=== PATIENT | female | born 1975 | race Caucasian/White ===

== ENCOUNTER 2016-10-27 01:21 | Emergency (ER) | payer BC ==
--- NOTE | 2016-10-27 01:46 | ED ---
Lower Extremity Injury HPI - General Stated Complaint: Ankle Injury Time Seen by Provider: 10/27/16 01:28 Source: patient, EMS, RN notes reviewed Mode of arrival: EMS Limitations: no limitations - History of Present Illness Initial Comments: This a 41-year-old female presents emergency Department chief complaint right ankle injury. Patient states she just got home in which she was walking her house and states her ankle rolled. She states that her ankle appeared to be deformed. She states that her significant other pulled on it and states that they called him 911 because she cannot walk. She does admit to some alcohol use tonight. Patient denies any head injury no LOC. She states she only has right ankle pain with no prior history of ankle problems. - Related Data Home Medications Medication Instructions Recorded Confirmed Levothyroxine Sodium [Synthroid] 50 mcg PO DAILY 10/27/16 10/27/16 Previous Rx's Medication Instructions Recorded HYDROcodone/APAP 7.5-325MG [Dimock 1 tab PO Q6HR PRN #20 tab 10/27/16 7.5-325] Allergies Allergy/AdvReac Type Severity Reaction Status Date / Time hydroxyzine [From Vistaril] Allergy Unknown Verified 10/27/16 01:49 Review of Systems ROS Statement: Those systems with pertinent positive or pertinent negative responses have been documented in the HPI. ROS Other: All systems not noted in ROS Statement are negative. General Exam General appearance: alert, in no apparent distress Respiratory exam: Present: normal lung sounds bilaterally. Absent: respiratory distress, wheezes, rales, rhonchi, stridor Cardiovascular Exam: Present: regular rate, normal rhythm, normal heart sounds. Absent: systolic murmur, diastolic murmur, rubs, gallop, clicks Extremities exam: Present: other (Right ankle there is moderate swelling with ecchymosis noted moderate to severe tenderness medial malleolus neurovascular intact with cap refill less than 2 seconds no foot tenderness and no tenderness over the proximal tib-fib) Neurological exam: Present: alert, oriented X3, CN II-XII intact Skin exam: Present: warm, dry Course Vital Signs 10/27/16 01:30 Temperature 97.3 F L Pulse Rate 92 Respiratory 18 Rate Blood Pressure 118/73 O2 Sat by Pulse 98 Oximetry Procedures - Orthopedic Splinting/Casting Injury #1 Side: right Lower Extremity Injury Location: ankle Lower Extremity Immobilizer: posterior splint (Short leg neurovascular intact before and after procedure in addition sugar tong splint was added) Other Orthopedic Equipment: crutches Medical Decision Making - Medical Decision Making 41-year-old female presented emergency department for her right ankle injury. Patient has comminuted ankle fracture/bimalleolar fracture. Patient was splinted and we follow-up with orthopedics. Patient was given prescription for crutches and pain medication return parameters were discussed. Foot is neurovascularly intact. Disposition Clinical Impression: Bimalleolar fracture of right ankle Disposition: HOME SELF-CARE Condition: Stable Instructions: Ankle Fracture (ED) Additional Instructions: Please return to the Emergency Department if symptoms worsen or any other concerns. Prescriptions: HYDROcodone/APAP 7.5-325MG [Dimock 7.5-325] 1 tab PO Q6HR PRN #20 tab PRN Reason: Pain Referrals: Annamarie Berg MD [Primary Care Provider] - 1-2 days Miguel Angel Pringle MD [Medical Doctor] - 1-2 days Time of Disposition: 02:06
[2016-10-27 01:50] VITALS: RESP 18
--- NOTE | 2016-10-27 02:08 | XR ---
EXAM: XR Right Ankle Complete, 3 or More Views CLINICAL HISTORY: Reason: Pain TECHNIQUE: Frontal, lateral and oblique views of the right ankle. COMPARISON: No relevant prior studies available. FINDINGS: Bones/joints: Comminuted distal fibular fracture at the distal diaphysis. Distal tibial fracture at the metadiaphysis extending to the medial malleolus. Slight disruption of the ankle mortise with widening of the medial tibiotalar space. Small os trigonum posterior talus. Soft tissues: Unremarkable. IMPRESSION: 1. Comminuted distal fibular fracture. 2. Distal tibial fracture at the metadiaphysis extending to the medial malleolus. 3. Slight disruption of the ankle mortise with widening of the medial tibiotalar space.
[2016-10-27] MEDS ORDERED: HYDROcodone/APAP 7.5-325MG 1 EACH TAB PO ONE (02:13)
[2016-10-27 02:27] VITALS: BP 111/73; PULSE 90; TEMP 97.7
== END 2016-10-27 02:27 | disposition home or self-care (01) ==
LOC: EC 01:21
DX: S82.841A Displaced bimalleolar fracture of right lower leg, initial encounter for closed fracture (principal); Z79.899 Other long term (current) drug therapy; Z88.8 Allergy status to other drugs, medicaments and biological substances; W18.40XA Slipping, tripping and stumbling without falling, unspecified, initial encounter; Y92.009 Unspecified place in unspecified non-institutional (private) residence as the place of occurrence of the external cause
CPT/HCPCS: 29515; 99284

== ENCOUNTER → 2016-10-29 | Outpatient (CLI) | payer BC ==
--- NOTE | 2016-10-29 14:56 | CT ---
EXAMINATION TYPE: CT ankle RT wo con DATE OF EXAM: 10/29/2016 COMPARISON: Right ankle x-ray 2 days ago. HISTORY: Persistent pain post trauma on 10/26/16, known fractures CT DLP: 286 mGycm Automated exposure control for dose reduction was used. FINDINGS: Overlying cast material is present. There is redemonstration of comminuted displaced fracture through distal fibular diaphysis. There is distraction of distal fracture fragment. There is additional rhomboid fracture fragment that is later ally displaced and laterally angulated inferiorly redemonstrated. There is comminuted transverse fracture through the medial malleolus with largest 1.7 cm displaced fr acture fragment. There are additional smaller punctate fracture fragments. There is comminuted acute intra-articular fracture of the posterior malleolus redemonstrated. There is ankle mortise disruption with talus laterally displaced relative to the distal tibia and has abnormal medial tilting. There is mild to moderate diffuse subcutaneous edema. Visualized distal Achilles tendon is intact. Normal sinus tarsi fat is seen. The talus and calcaneus are intact. Hindfoot structures and visualized midfoot structures are intact. Lisfranc joints are andrea ntained. IMPRESSION: ACUTE TRIMALLEOLAR COMMINUTED FRACTURE WITH MORTISE DISRUPTION REDEMONSTRATED DETAILED ABOVE.
== END | disposition home or self-care (01) ==
LOC: RADCTMAIN 14:21
PROVIDERS: ATTEND Orthopaedic Surgery
DX: S82.851A Displaced trimalleolar fracture of right lower leg, initial encounter for closed fracture (principal)

== ENCOUNTER 2016-11-06 08:47 | Day surgery (SDC) | payer BC ==
[2016-11-04 15:41] VITALS: BMI 31.6
[~2016-11-06 08:47] MED LIST: FAMOTIDINE 20 MG/2 ML VIAL IV PRN; LACTATED RINGERS 1,000 ML IV SCH; LIDOCAINE 1% 20 ML VIAL (10MG/ML) FOR IV START INTRADERMA PRN; ONDANSETRON 4 MG/2 ML VIAL IVP PRN; ceFAZolin 2 GM in SODIUM CHLORIDE 0.9% 100 ML IVPB ONE
[2016-11-06] MEDS ORDERED: SCOPOLAMINE 1.5MG/72HR PATCH TRANSDERM ONE (09:25)
[2016-11-06] MEDS ORDERED: PROPOFOL 10 MG/ML 20 ML VIAL IV ONE (11:12)
[2016-11-06] MEDS ORDERED: HYDROmorphone (PF) 1 MG/ML ONE (11:12)
[2016-11-06] MEDS ORDERED: MIDAZOLAM 2 MG/2 ML VIAL ONE (11:12)
[2016-11-06] MEDS ORDERED: ePHEDrine 50 MG/ML 1 ML AMP ONE (11:12)
[2016-11-06] MEDS ORDERED: fentaNYL (PF) 50 MCG/ML 2 ML AMP ONE (11:12)
[2016-11-06] MEDS ORDERED: LIDOCAINE 1% INJ 10MG/ML (20 ML MDV) ONE (11:12)
[2016-11-06] MEDS ORDERED: ceFAZolin 1,000 MG in SODIUM CHLORIDE 0.9% 1,000 ML IRRIGATION ONE ×4 (11:45)
[2016-11-06] MEDS ORDERED: LACTATED RINGERS 1,000 ML IV ONE ×2 (12:00→13:49)
--- NOTE | 2016-11-06 13:11 | XR ---
Fluoroscopy History: ORIF ANKLE 59 SEC FL TIME, 3 IMAGS. ORIF ANKLE . Paper images demonstrate fixation plate and screws in place wit h much improved alignment.
[2016-11-06] MEDS: HYDROmorphone 1 MG/ML 1 ML SYRINGE IVP PRN ×2 (13:35→13:42)
[2016-11-06 13:36] VITALS: TEMP 97.4
[2016-11-06 13:43] VITALS: RESP 16
--- NOTE | 2016-11-06 13:43 | P.OP ---
Date of Procedure: 11/06/16 Preoperative Diagnosis: 1. Closed right trimalleolar ankle fracture Postoperative Diagnosis: Same Procedure(s) Performed: 1. Open reduction and internal fixation right trimalleolar ankle fracture ( open reduction and internal fixation of medial and lateral malleolus, nonoperative management of posterior malleolus fracture) 2. Manual application of joint stress by physician for radiography, right ankle Implants: Anesthesia: GETA Surgeon: Miguel Angel Pringle Lunchroom Food Service Supervisor #1: Rosemarie Garcia Estimated Blood Loss (ml): 20 IV fluids (ml): 1,600 Pathology: none sent Condition: stable Disposition: PACU Indications for Procedure: The patient is a 41-year-old female who sustained a fall over a week ago resulting in a closed right ankle fracture. She was seen in the emergency department where a closed reduction and splint application was performed. She was transferred to our office for further management. X-rays showed a comminuted fibula fracture with a displaced medial and posterior malleolus fracture. She was sent for a computed tomography scan which showed a highly comminuted fibula fracture, large medial malleolus fracture and small posterior malleolus fracture. I recommended open reduction internal fixation of her fracture. We discussed potential risks and complication of surgery including but not limited to risk of anesthesia, risk of delayed infection, risk of superficial infection, risk of delayed wound healing, risk of wound necrosis, risk of damage to local sensory nerves resulting attempt or permanent numbness, risk of damage to blood vessels, risk of fracture malunion, risk of fracture nonunion, risk of delayed union, risk of symptomatically hardware, risk of intraoperative fracture, risk of postoperative fracture, risk of postoperative displacement requiring further surgery, risk of chronic pain, risk of chronic swelling, risk of difficulty regaining preinjury level of function, risk of the faculty with ambulation phone surgery, risk of dissatisfaction with surgery, and possibly loss of life or limb. The patient voices her understanding of these risks and provided her verbal and written consent to go forward with surgery. Operative Findings: Description of Procedure: The patient was identified in preoperative holding and the correct right lower extremity was marked with my initials. All the patient's questions were answered. She was then brought back to the operating room after anesthesia had placed a popliteal and saphenous nerve block in preoperative holding. The patient was then positioned on the operating room table and a general anesthetic and preoperative antibiotics were administered. A tourniquet was applied to the proximal aspect of the right thigh. Prior to securing the patient to the table and a mortise and chew lateral of the unaffected left ankle were used for intraoperative templates due to the comminuted nature of her fibula fracture. Once these x-rays had been obtained the left leg was secured to the operating room table with egg foam and tape. A bone foam bump was placed under her right buttock internally rotating the leg. A ramp was placed under the right leg. The patient's right leg was then prepped and draped in the standard sterile fashion. Prior to starting surgery timeout was performed identifying the correct patient, operative extremity, and procedure. The patient's leg was then elevated, exsanguinated with an Esmarch bandage, and the tourniquet was inflated to 250 mmHg. Due to the comminuted fibula fracture I elected to perform open reduction internal fixation of the medial malleolus first to help assess reduction of the fibula. A longitudinal incision was made centered over the tip of the medial malleolus. Dissection was carried down carefully through the subcutaneous tissue with tenotomy scissors. The saphenous nerve and vein were identified and carefully retracted anteriorly. The fracture site was identified and the periosteum was incised longitudinally in line with the skin incision. Consolidating hematoma and early callus was cleaned out from the fracture site. Using a dental put I booked open the medial malleolus fracture and evaluated the joint. There were several loose osteochondral fragments which were removed. The joint was then copiously irrigated. There did not appear to be any osteochondral defects within the visible portion of the talar dome. A 2.0 mm drill bit was then used to create a unicortical poke hole just proximal to the fracture. 1 neno of a vwfmx-nn-yxbxz reduction clamp was placed in this drilled hole and the other neno was placed on the tip of the medial malleolus. I then gently keyed the medial malleolus fragment in place and tightened the reduction clamp holding the reduction. I verified reduction using fluoroscopy. I also dissected anteriorly to the shoulder of the ankle joint which appeared to be anatomically reduced. I then placed K wires anteriorly and posteriorly to the neno of the pointed reduction clamp and the tip of the medial malleolus. A cannulated drill bit was used to overdrill and then two partially threaded 4.5 mm cannulated screws were placed. The reduction clamp was removed and the reduction held. I verified reduction and placement of hardware with C-arm. Attention was then turned to the fibula. A longitudinal incision was marked out distal to the fracture directly over the distal aspect of the lateral malleolus. A second incision was marked out proximal to the fracture over the lateral aspect of the fibula. The skin directly over the comminuted fracture was not approached to prevent violation of the fracture zone due to the high level of comminution. Skin incisions were made over both marked incision with a 15 blade scalpel and dissection was carried down carefully to the fibula proximal and distal to the area of comminution. A mfzsv-ao-[id number] reduction clamp was placed on the distal aspect of the fibula. I then pulled longitudinal traction. Using the contralateral mortise view obtained before surgery to guide the length and rotation I used a 0.0625 K wire anterior and posterior to the plate would sit to hold the reduction. I then came in for a lateral C-arm shot. Using the preoperative lateral x-ray of the contralateral limb I assessed the anterior to posterior position of the fibula. Once the right side appeared symmetric to the left a second K wire was placed. Both K wires were then driven into the tibia holding the reduction. C-arm fluoroscopy was then used to assess reduction and the both the mortise and lateral view. The right x-ray appeared to be symmetric to the left. I then placed a precontoured distal fibula plate through the distal incision and slid it proximally. The plate was secured to bone with 3.5 mm nonlocking screws both proximal and distal to the area of comminution bringing the plate nicely down to bone. I then proceeded to place 4 locking screws distally through the plate and an additional 3 nonlocking screws proximal to the plate. A manual external rotation stress test was then performed. Under live C-arm when an external rotation stress was performed there was opening of the medial clear space and incisura. I interpreted this as an unstable syndesmosis requiring a syndesmotic screw. I then placed a large pelvic reduction clamp with 1 neno in a screw hole over the lateral malleolus and the other neno over the medial malleolus. Gentle compression was applied and a fully threaded 35 screw was placed across all 4 cortices of the fibula and tibia, respectively. Final fluoroscopy shots were then taken including a mortise, AP, and true lateral. The talus appeared to be anatomically reduced within the ankle mortise on all views. The hardware appeared to be in acceptable position. All wounds were then copiously irrigated with sterile saline. The deep fascia was closed with running 0 Vicryl in all incisions. The deep subcu was reapproximated using interrupted 2-0 Vicryl. The skin was closed using 3-0 nylon horizontal mattress stitches. After all incisions were closer verified that all instrument, sponge, and sharp counts were correct. A sterile dressing consisting of quarter inch Brown stretchy Steri-Strips, Betadine soaked Adaptic , 4 x 4, and web roll was applied. The drapes were then taken down and a very well-padded bulky Norris type splint was applied. The patient was then awoken from her anesthetic, transferred from the operating table to the [facility] and brought to PACU in stable condition. Rosemarie Garcia PA-C was required as a skilled clinical project assistant for patient positioning, prepping, surgical exposure, fracture reduction, skin retraction, application of hardware, posterior of surgical wounds, and placement of splint. Plan: The patient is to remain strictly nonweightbearing on her right leg. If her pain is controlled she can discharge home as an outpatient. If she has issues with pain she can be admitted to the hospital. If she is admitted to the hospital she will need 2 doses of postoperative antibiotics and DVT prophylaxis with Lovenox.
[2016-11-06] MEDS ORDERED: KETOROLAC 30 MG/ML 1 ML VIAL IVP ONE (13:51)
[2016-11-06] MEDS: MIDAZOLAM 2 MG/2 ML VIAL IV PRN ×2 (14:03→14:20)
[2016-11-06] MEDS ORDERED: HYDROcodone/APAP 10-325MG 1 EACH TAB PO ONE (14:58)
[2016-11-06 16:05] VITALS: BP 126/70; PULSE 100
--- NOTE | 2016-11-07 09:49 | P.ONQ ---
Anesthesiology Proc Note - PNB - Peripheral Nerve Block Performed Right Popliteal Single Time Out Performed: Yes Procedure Start Time: 11:05 Procedure Stop Time: 11:10 Indication: Acute Post-Operative Pain, Requested by physician Sedation Type: Sedate with meaningful contact maintained Preparation: Sterile Prep Catheter: None Needle Size: 50mm (2") Needle Gauge: 21 Technique: Ultrasound Injectate: 0.5% Ropivacaine (see comment for volume) (ropi .5% 20cc given) Blood Aspirated: No Pain Paresthesia on Injection Noted: No Resistance on Injection: Normal Events: Uneventful and Well Tolerated
== END 2016-11-06 16:10 | disposition home or self-care (01) ==
LOC: OR 08:47
PROVIDERS: ATTEND Orthopaedic Surgery
DX: S82.851A Displaced trimalleolar fracture of right lower leg, initial encounter for closed fracture (principal); W19.XXXA Unspecified fall, initial encounter; E03.9 Hypothyroidism, unspecified; Z79.891 Long term (current) use of opiate analgesic; Z79.899 Other long term (current) drug therapy; Z79.1 Long term (current) use of non-steroidal anti-inflammatories (NSAID); Z91.09 Other allergy status, other than to drugs and biological substances
CPT/HCPCS: 73610; 27822; 77071; C1713; J2250; J0690 ×2; J2405; J1885; J1170

== ENCOUNTER → 2016-11-22 | Outpatient (CLI) | payer BC | END | disposition home or self-care (01) | LOC: LABWHC1 08:53 | PROVIDERS: ATTEND Orthopaedic Surgery | DX: E55.9 Vitamin D deficiency, unspecified (principal) | CPT/HCPCS: 36415; 82306 ==

== ENCOUNTER → 2016-12-19 | Outpatient (CLI) | payer BC | END | disposition home or self-care (01) | LOC: LABWHC1 14:41 | PROVIDERS: ATTEND Orthopaedic Surgery | DX: E55.9 Vitamin D deficiency, unspecified (principal) | CPT/HCPCS: 36415; 82306 ==

== ENCOUNTER → 2017-07-30 | Outpatient (CLI) | payer BC ==
--- NOTE | 2017-07-30 10:57 | WWHP ---
[facility] - HISTORY AND PHYSICAL DATE OF DICTATION: 07/30/2017 CHIEF COMPLAINT: The patient is here for her routine gynecologic exam and mammogram. HPI: This is a 42-year-old G0 with an LMP of 07/11/2017. She states it has been about 2 years since her last pelvic exam. She states she has had a slight vaginal odor on and off during the past 1 year. She denies discharge or pruritus. She has had also occasional pelvic tenderness which can be on and off. She states her periods are regular every month, typically lasting about 3 to 4 days with 1 day of heavier flow and clots. In the past, they have been fairly heavy on the day with clots and the clots can be fairly large. She states over the past 6 months, things have been better and have not been much of a problem more recently. PAST MEDICAL HISTORY: Hypothyroidism. MEDICATIONS: 1. Vitamin D3 four thousand units daily and she decreases this to 2000 units daily during the summer. 2. Thyrotrophin flaj-gjj-zyddrcf supplement taken t.i.d. 3. Cataplex-F t.i.d. 4. She states she previously used levothyroxine 50 mcg daily, but discontinued this in place of the two jyoc-kmm-obvqkvu supplements, which she takes for her thyroid condition. She states her primary care physician is aware of this change. ALLERGIES: To VISTARIL, which cause nausea and vomiting. PAST SURGICAL HISTORY: Breast reduction surgery in 1988, ankle surgery in 2017. PAST SYSTEMS SPECIALIST HISTORY: She has no history of STDs. SOCIAL HISTORY: She denies tobacco and drug use and has 1 to 2 alcohol-containing drinks per week. She has been with her boyfriend for 16 years and lives with him. She states he has been her only sexual partner during these 16 years, but she believes that her partner did have other partners during this 16 years but they have been monogamous for the last several years. 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 FAMILY HISTORY: Aunt had non-Hodgkin's lymphoma. Maternal aunt had breast cancer. Maternal grandfather had lung cancer. Father had an PR and CHF. REVIEW OF SYSTEMS: She believes she has gained approximately 20 pounds over the last year. She denies respiratory, cardiac or GI problems. PHYSICAL EXAM: Blood pressure 123/83, height 5 feet 5 inches, weight 221 pounds. BMI 37, temperature 96.9, pulse 107. This is a well-developed, heavyset white female, who is alert and oriented x3, in no acute distress. HEENT is within normal limits. NECK: Supple without mass or thyromegaly. CHEST AND LUNGS: Clear to auscultation. HEART: Regular rate and rhythm. Breasts are consistent with a previous breast reduction surgery and are without mass or tenderness. Axillary exam is negative for adenopathy. Back negative for CVA tenderness. ABDOMEN: Soft, nontender, without palpable masses. PELVIC EXAM: Normal external genitalia. Cervix and vagina reveal a small amount of thick whitish discharge without odor. Cervix appears normal and is noninflamed. There is no cervical motion tenderness. The uterus is mid position, nongravid size and nontender. There are no palpable adnexal masses or tenderness. Rectal exam is negative for mass or tenderness and is negative for occult blood. EXTREMITIES: Nontender. ADDITIONAL STUDIES: Saline wet mount and YASMIN wet mount is negative for Trichomonas, hyphae and clue cells. IMPRESSION: 1. A 42-year-old female with small vaginal discharge and otherwise unremarkable gynecologic exam. 2. A one-year history of intermittent vaginal odor which is currently asymptomatic and there is no evidence of vaginitis by wet hossein. 3. Mild hypermenorrhea in the past, which has seemed to improved over the last 6 months. 4. Occasional pelvic tenderness without any significant physical findings at this time. PLAN: 1. Pap smear was performed. 2. Self breast examination was discussed. 3. Screening mammogram will be done today. 4. GC and chlamydia testing from the cervix was obtained. 5. The patient will keep a menstrual calendar and call if she has heavier bleeding or increasing clots. At that time, we can consider a medication such as meclofenamate sodium. 6. At this time, I am not treating her for her history of vaginal odor, but she was instructed to return if she is having a return of these symptoms. 7. She will also call if she is having worsening pelvic tenderness or pain at which time we will consider further studies such as pelvic ultrasound. 8. She will return in 1 year and p.r.n. MMODL / IJN: [id number] /
--- NOTE | 2017-07-31 09:10 | MM ---
Reason for exam: screening (asymptomatic). Last mammogram was performed 1 year and 3 months ago. History: Patient is nulliparous. Family history of breast cancer in maternal aunt at age 55. Reductions of both breasts, 1985. Physical Findings: A clinical breast exam by your physician is recommended on an annual basis and results should be correlated with mammographic findings. MG 3D Screening Mammo W/Cad Bilateral CC and MLO view(s) were taken. Prior study comparison: April 17, 2016, bilateral MG 3d diag mammo w/cad KAREN. August 26, 2014, bilateral MG screening mammo w CAD. There are scattered fibroglandular densities. There is no discrete abnormality. No significant changes when compared with prior studies. ASSESSMENT: Negative, BI-RAD 1 RECOMMENDATION: Routine screening mammogram of both breasts in 1 year.
[2017-07-31 16:19] LABS: C. trachomatis,PCR Negative (Neg,Equiv); Chlamydia trachomatis Source Cervix; N. gonorrhoeae,PCR Negative (Neg,Equiv); Neisseria Source Cervix
== END | disposition home or self-care (01) ==
LOC: WWCWWP 08:36
PROVIDERS: ATTEND Obstetrics & Gynecology
DX: Z12.31 Encounter for screening mammogram for malignant neoplasm of breast (principal); Z11.3 Encounter for screening for infections with a predominantly sexual mode of transmission; N89.8 Other specified noninflammatory disorders of vagina
CPT/HCPCS: 77063; 77067; 87491; 87591

== ENCOUNTER → 2018-07-31 | Outpatient (CLI) | payer BC ==
--- NOTE | 2018-07-31 08:43 | MM ---
Reason for exam: additional evaluation requested from prior study. Last mammogram was performed 1 year ago. History: Patient is nulliparous. Family history of breast cancer in maternal aunt at age 55. Reductions of both breasts, 1985. Physical Findings: Nurse did not find any significant physical abnormalities on exam. MG Diagnostic Mammo w CAD KAREN Bilateral CC and MLO view(s) were taken. Prior study comparison: July 30, 2017, bilateral MG 3d screening mammo w/cad. April 17, 2016, bilateral MG 3d diag mammo w/cad KAREN. The breast tissue is heterogeneously dense. This may lower the sensitivity of mammography. No significant new findings when compared with previous films. These results were verbally communicated with the patient and result sheet given to the patient on 07/31/18. ASSESSMENT: Benign, BI-RAD 2 RECOMMENDATION: Routine screening mammogram of both breasts in 1 year.
== END ==
LOC: RADMAMWWP 07:29
PROVIDERS: ATTEND Internal Medicine
DX: N63.10 Unspecified lump in the right breast, unspecified quadrant (principal)
CPT/HCPCS: 77066

== ENCOUNTER → 2018-09-08 | Outpatient (CLI) | payer BC ==
[2018-09-08 09:22] VITALS: BP 122/69; PULSE 79; RESP 18; TEMP 97.9; BMI 36.6
--- NOTE | 2018-09-08 10:15 | P.HPOB ---
History of Present Illness H&P Date: 09/08/18 Chief Complaint: The patient is here for her routine gynecologic exam. This is a 43-year-old G0 with an LMP of 09/02/2018. The patient states she has had occasional pelvic tenderness. She states it is not on one particular side. She denies any urinary symptoms. Menstrual periods are regular every month. She states they can be variable and occasionally are heavy during the 2nd or 3rd day. She states she has gotten sweaty at times. She has been under more stress at work. Review of Systems Her weight has been stable. She denies respiratory or cardiac problems. G.I.: she has been feeling somewhat bloated at times. She has been under more stress at work. She has noticed occasions when she feels sweaty or her pulse is fast. 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 History of Any Multi-Drug Resistant Organisms: None Reported Past Surgical History: Breast Surgery, Orthopedic Surgery Additional Past Surgical History / Comment(s): Breast reduction surgery. Ankle surgery. Additional Past Anesthesia/Blood Transfusion Reaction / Comment(s): over medicated during her breast reduction, pt was 13 yrs old Past Psychological History: No Psychological Hx Reported Smoking Status: Never smoker Past Alcohol Use History: Occasional (0-1 per week) Past Drug Use History: None Reported Additional History: She is been with her boyfriend since 2001 and lives with him. 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 - Past Family History Father Family Medical History: Congestive Heart Failure (CHF), Myocardial Infarction ([place]) Mother Family Medical History: No Reported History Additional Family Medical History / Comment(s): Maternal aunt had breast cancer. Maternal grandfather had lung cancer. Another and had non-Hodgkin's lymphoma. Medications and Allergies Home Medications Medication Instructions Recorded Confirmed Type Levothyroxine Sodium [Synthroid] 50 mcg PO DAILY 10/27/16 09/08/18 History Cholecalciferol [Vitamin D3] 1,000 unit PO DAILY 09/08/18 09/08/18 History Allergies Allergy/AdvReac Type Severity Reaction Status Date / Time hydroxyzine [From Vistaril] Allergy Vomiting Verified 09/08/18 09:12 Exam Vital Signs Temp Pulse Resp BP Pulse Ox 09/08/18 09:15 97.9 F 79 18 122/69 99 Intake and Output 09/07/18 09/08/18 09/08/18 22:59 06:59 14:59 Other: Weight 99.79 kg Height 5'5", weight 220 pounds, BMI 36.6. This is a well-developed well-nourished heavyset white female who is alert and oriented times 3 in no acute distress. HEENT: Within normal limits. NECK: Supple without mass or thyromegaly. CHEST AND LUNGS: Clear to auscultation. HEART: Regular rate and rhythm. BREASTS: Are without mass or discharge. AXILLARY EXAM: Negative for adenopathy. BACK: Negative for CVA tenderness. ABDOMEN: Soft, nontender, without palpable masses. PELVIC EXAM: Normal external genitalia. Cervix and vagina appear normal. There is no unusual discharge. There is no cervical motion tenderness. There is no evidence of prolapse. The uterus is midposition, nongravid size and is minimally tender which is generalized. There are no palpable adnexal masses. RECTAL EXAM: rectovaginal exam is negative for mass or tenderness and is negative for occult blood. EXTREMITIES: Nontender. IMPRESSION: 1. 43 year old female with minimal generalized pelvic tenderness on exam without palpable mass. 2. Greater than 1 year history of intermittent pelvic tenderness. 3. Complainant of abdominal bloating. 4. Intermittent sweating and increased heart rate. Differential diagnosis will include unregulated thyroid, dehydration, hypoglycemia, stress, and possible perimenopausal symptoms. 5. History of mild hypermenorrhea which is intermittent. PLAN: 1. Pap smear was deferred since she had a normal one on 07/30/2017. 2. Self breast awareness was discussed with the patient. 3. Bilateral diagnostic mammogram was done on 07/31/2018 and was benign. Screening mammogram in one year was recommended. 4. Pelvic ultrasound will be scheduled. The order slip was given to the patient for this. 5. The patient will keep a menstrual calendar and call if she is having menstrual problems. 6. She will follow-up with her primary care physician to confirm that her thyroid medication is regulated. 7. GC and chlamydia testing was performed on 07/30/2017 and were both negative. 8. She will return in one year and PRN.
== END | disposition home or self-care (01) ==
LOC: WWCWWP 08:50
PROVIDERS: ATTEND Obstetrics & Gynecology
DX: Z53.9 Procedure and treatment not carried out, unspecified reason (principal)

== ENCOUNTER → 2018-09-17 | Outpatient (CLI) | payer BC ==
--- NOTE | 2018-09-17 16:38 | US ---
EXAMINATION TYPE: US pelvic complete DATE OF EXAM: 09/17/2018 COMPARISON: NONE CLINICAL HISTORY: R10.2 PELVIS PAIN, R68.89 ABN PEL.EXAM. Intermittent pelvic tenderness x couple guadalupe tse, 1, miscarriage 1 TECHNIQUE: Transabdominal sonographic images of the pelvis were acquired. Date of LMP: 09/03/2018 EXAM MEASUREMENTS: Uterus: 13.2 x 6.0 x 6.1 cm Endometrial Stripe: 1.5 cm Right Ovary: 3.1 x 2.1 x 1.7 cm Left Ovary: 2.3 x 1.5 x 1.9 cm 1. Uterus: anteverted, enlarged, heterogeneous with 2.8 x 3.1 x 3.0cm hypoechoic fundal lesion, like ly a leiomyoma 2. Endometrium: appears slightly thickened 3. Right Ovary: wnl 4. Left Ovary: wnl 5. Bilateral Adnexa: wnl 6. Posterior cul-de-sac: wnl IMPRESSION: 1. Slightly thickened endometrium measuring 1.5 cm. Sonohysterogram could be performed to evaluate fo r endometrial polyp, endometrial mass or endometrial hyperplasia. 2. There is a 3.0 cm intramural uterine fundal lesion, likely a leiomyoma.
== END | disposition home or self-care (01) ==
LOC: RADUSWWP 16:03
PROVIDERS: ATTEND Obstetrics & Gynecology
DX: N85.9 Noninflammatory disorder of uterus, unspecified (principal); R93.89 Abnormal findings on diagnostic imaging of other specified body structures
CPT/HCPCS: 76856

== ENCOUNTER → 2018-12-17 | Outpatient (CLI) | payer BC ==
--- NOTE | 2018-12-17 08:34 | US ---
EXAMINATION TYPE: US abdomen complete DATE OF EXAM: 12/17/2018 COMPARISON: NONE CLINICAL HISTORY: R10.10 Upper abd pain. EXAM MEASUREMENTS: Liver Length: 14.4 cm Gallbladder Wall: 0.2 cm CBD: 0.5 cm Spleen: 12.4 cm Right Kidney: 11.7 x 4.3 x 5.4 cm Left Kidney: 10.5 x 4.4 x 5.7 cm Pancreas: visualized portions wnl Liver: wnl Gallbladder: No stones seen Evidence for sonographic Mead's sign: No CBD: wnl Spleen: wnl Right Kidney: No hydronephrosis or masses seen Left Kidney: No hydronephrosis or masses seen Upper IVC: wnl Abd Aorta: wnl The visualized liver is slightly heterogeneously hyperechoic. Evaluation for focal masses is slightly suboptimal due to the heterogeneity. Findings presumed basis of mild diffuse fatty infiltration. Th e intrahepatic portion of the IVC and visualized abdominal aorta are within normal limits. There is no evidence of cholelithiasis. Common bile duct is unremarkable. The visualized portions of the winter creas are homogenous. The spleen is unremarkable. Kidneys are symmetric and free of hydronephrosis. No renal lesions are seen on images saved. IMPRESSION: No acute findings are identified.
[2018-12-17 13:17] LABS: ALT 30 U/L (9-52); AST 24 U/L (14-36); African American GFR (CKD) >90 (>60 ml/min/1.73 sqM); Albumin 4.4 g/dL (3.5-5.0); Alkaline Phosphatase 76 U/L (38-126); Anion Gap 11 mmol/L; Blood Urea Nitrogen 17 mg/dL (7-17); Calcium 9.2 mg/dL (8.4-10.2); Carbon Dioxide 22 mmol/L (22-30); Chloride 107 mmol/L (98-107); Glucose 95 mg/dL (74-99); Potassium 4.4 mmol/L (3.5-5.1); Sodium 140 mmol/L (137-145); Total Bilirubin 0.6 mg/dL (0.2-1.3); Total Protein 7.5 g/dL (6.3-8.2)
== END | disposition home or self-care (01) ==
LOC: RADUSMAIN 07:43
PROVIDERS: ATTEND Internal Medicine
DX: R10.10 Upper abdominal pain, unspecified (principal)
CPT/HCPCS: 76700; 80053

== ENCOUNTER → 2019-01-14 | Outpatient (CLI) | payer BC ==
--- NOTE | 2019-01-15 09:01 | CT ---
EXAMINATION TYPE: CT abdomen pelvis w con DATE OF EXAM: 01/14/2019 COMPARISON: Ultrasound abdomen dated 12/17/2018 HISTORY: Upper abdomen pain, hardness and bloating x6 months. CT DLP: 1679 mGycm Automated exposure control for dose reduction was used. TECHNIQUE: Helical acquisition of images was performed from the lung bases through the pelvis. CONTRAST: Performed with Oral Contrast and with IV Contrast, patient injected with 100 mL of Isovue 300. FINDINGS: LUNG BASES: No significant abnormality is appreciated. LIVER/GB: No significant abnormality is appreciated. PANCREAS: No significant abnormality is seen. SPLEEN: No significant abnormality is seen. ADRENALS: No significant abnormality is seen. KIDNEYS: No significant abnormality is seen. FREE AIR: No free air is visualized. RETROPERITONEAL ADENOPATHY: A few prominent but nonenlarged lymph nodes are seen along the jejunal v asculature with the largest on axial image 54 measuring up to 0.7 cm. No lymphadenopathy. REPRODUCTIVE ORGANS: No significant abnormality is seen URINARY BLADDER: No significant abnormality is seen. PELVIC ADENOPATHY: None visualized. OSSEOUS STRUCTURES: Mild degenerative changes at L5-S1. BOWEL: No significant abnormality is seen. IMPRESSION: NO ACUTE PROCESS WITHIN THE ABDOMEN OR PELVIS. PROMINENT BUT NONENLARGED NONSPECIFIC JEJUNAL LYMPH NODES.
== END | disposition home or self-care (01) ==
LOC: RADCTMAIN 15:33
PROVIDERS: ATTEND Internal Medicine
DX: R10.10 Upper abdominal pain, unspecified (principal)
CPT/HCPCS: 74177; Q9967

== ENCOUNTER → 2019-02-05 | Outpatient (CLI) | payer BC ==
--- NOTE | 2019-02-05 15:42 | NM ---
EXAMINATION TYPE: NM hepatobiliary w EF DATE OF EXAM: 02/05/2019 COMPARISON: CT abdomen pelvis dated 01/14/2019 HISTORY: Abdominal pain TECHNIQUE: After the intravenous administration of 5 mCi Tc 99m Mebrofenin hepatobiliary scintigraphy is performed. Immediate images post injection. FINDINGS: There is satisfactory initial accumulation of tracer by the liver. The gallbladder is visualized wit hin 8 minutes. The small bowel activity is noted within 58 minutes. At one hour 8 ounces of oral en sure plus is given to mimic CCK and gallbladder ejection fraction is calculated at 83 %, slightly jey vated. Therefore there is no scintigraphic evidence of cystic or common bile duct obstruction to sug gest acute cholecystitis or gallbladder dyskinesia. IMPRESSION: No scintigraphic evidence of acute or chronic cholecystitis. Biliary hyperkinesia is seen of the gallbladder ejection fraction is mildly elevated.
== END | disposition home or self-care (01) ==
LOC: RADNMMAIN 12:35
PROVIDERS: ATTEND Internal Medicine
DX: R93.2 Abnormal findings on diagnostic imaging of liver and biliary tract (principal); R10.9 Unspecified abdominal pain
CPT/HCPCS: 78226; A9537

== ENCOUNTER → 2019-08-17 | Outpatient (CLI) | payer BC ==
[2019-08-17 16:18] LABS: Basophils % (A) 1 %; Eosinophils # (A) 0.2 k/uL (0-0.7); Eosinophils % (A) 2 %; HCT 40.7 % (34.0-46.0); HGB 13.3 gm/dL (11.4-16.0); Lymphocytes # (A) 1.2 k/uL (1.0-4.8); Lymphocytes % (A) 17 %; MCH 28.1 pg (25.0-35.0); MCHC 32.7 g/dL (31.0-37.0); MCV 85.9 fL (80.0-100.0); Mean Platelet Volume 8.1; Monocytes # (A) 0.4 k/uL (0-1.0); Monocytes % (A) 6 %; Neutrophils # (A) 4.9 k/uL (1.3-7.7); Neutrophils % (A) 71 %; Platelet Count 281 k/uL (150-450); RBC 4.74 m/uL (3.80-5.40); RDW 13.6 % (11.5-15.5); WBC 6.9 k/uL (3.8-10.6)
== END | disposition home or self-care (01) ==
LOC: LABPAT 12:28
PROVIDERS: ATTEND Obstetrics & Gynecology
DX: Z01.818 Encounter for other preprocedural examination (principal)
CPT/HCPCS: 36415; 85025

== ENCOUNTER → 2019-10-20 | Outpatient (CLI) | payer BC ==
[2019-10-20 12:32] LABS: Basophils % (A) 1 %; Eosinophils # (A) 0.1 k/uL (0-0.7); Eosinophils % (A) 2 %; HGB 12.4 gm/dL (11.4-16.0); Hypochromasia Slight; Lymphocytes # (A) 1.2 k/uL (1.0-4.8); Lymphocytes % (A) 19 %; MCH 26.7 pg (25.0-35.0); MCV 86.3 fL (80.0-100.0); Mean Platelet Volume 7.2; Monocytes # (A) 0.4 k/uL (0-1.0); Monocytes % (A) 6 %; Neutrophils # (A) 4.4 k/uL (1.3-7.7); Neutrophils % (A) 70 %; Platelet Count 311 k/uL (150-450); RBC 4.63 m/uL (3.80-5.40); RDW 13.3 % (11.5-15.5); WBC 6.2 k/uL (3.8-10.6)
[2019-10-20 20:03] LABS: African American GFR (CKD) 102.5 (60.0-200.0); Albumin 4.4 g/dL (3.80-4.90); Albumin/Globulin Ratio 1.69 (1.60-3.17); Anion Gap 9.9 mmol/L (4.00-12.00); BUN/Creat Ratio 17.5 Ratio (12.00-20.00); Calcium 9.4 mg/dL (8.7-10.3); Carbon Dioxide 25.1 mmol/L (21.6-31.8); Globulin 2.6 g/dL (1.6-3.3); Non-African American GFR(CKD) 88.4 (60.0-200.0); Potassium 4.3 mmol/L (3.5-5.5); Total Bilirubin 0.4 mg/dL (0.3-1.2)
[2019-10-20 20:46] LABS: Anti-DNA, DS unit <1.0 IU/mL; Anti-Smith Ab Interp NEGATIVE (NEGATIVE); Chromatin Antibody <0.2 AI; DNA Double-Stranded NEGATIVE (NEGATIVE); JO-1 IgG Antibody <0.2 AI; Scleroderma SC-70 Ab 0.5 AI
== END | disposition home or self-care (01) ==
LOC: LABWHC1 10:56
PROVIDERS: ATTEND Internal Medicine
DX: E03.9 Hypothyroidism, unspecified (principal); R10.9 Unspecified abdominal pain
CPT/HCPCS: 36415; 80053; 83516; 84443; 85025; 86038; 86225; 86235

== ENCOUNTER → 2019-11-03 | Outpatient (CLI) | payer BC | END | disposition home or self-care (01) | LOC: LABWHC1 09:00 | PROVIDERS: ATTEND Obstetrics & Gynecology | DX: Z11.59 Encounter for screening for other viral diseases (principal) ==

== ENCOUNTER 2019-11-05 05:55 | Day surgery (SDC) | payer BC ==
--- NOTE | 2019-11-04 12:34 | P.HPOB ---
History of Present Illness H&P Date: 11/04/19 Chief Complaint: Menorrhagia This patient is a pleasant 44-year-old 0 para 0 female who initially presented to me in July of this year in referral for menorrhagia. Patient presented requesting endometrial ablation. She's been having regular menses but very heavy with plum size clots that last up to 8 days. Patient's regular spinning frame tender Dr. Clifford is done regular exams and she had also done in August of last year that showed a normal lining but a 3 cm fundal fibroid. I discussed options with the patient and she requests to proceed with endometrial ablation for treatment. Review of Systems Genitourinary: Reports as per HPI, Reports menorrhagia Menstruation: Reports as per HPI, Reports menses 8 or > days, Reports period heavy Past Medical History Past Medical History: Thyroid Disorder Additional Past Medical History / Comment(s): Hypothyroidism. HEAVY MENSES AND CLOTTING History of Any Multi-Drug Resistant Organisms: None Reported Past Surgical History: Breast Surgery, Orthopedic Surgery Additional Past Surgical History / Comment(s): Breast reduction surgery. RT Ankle surgery. Additional Past Anesthesia/Blood Transfusion Reaction / Comment(s): over medicated during her breast reduction, pt was 13 yrs old Past Psychological History: No Psychological Hx Reported Smoking Status: Never smoker Past Alcohol Use History: None Reported Past Drug Use History: None Reported - Past Family History Father Family Medical History: Congestive Heart Failure (CHF), Myocardial Infarction ([place]) Mother Family Medical History: No Reported History Additional Family Medical History / Comment(s): Maternal aunt had breast cancer. Maternal grandfather had lung cancer. Another and had non-Hodgkin's lymphoma. Medications and Allergies Home Medications Medication Instructions Recorded Confirmed Type Levothyroxine Sodium [Synthroid] 50 mcg PO DAILY 10/27/16 08/17/19 History Cholecalciferol [Vitamin D3] 1,000 unit PO DAILY 09/08/18 08/17/19 History Allergies Allergy/AdvReac Type Severity Reaction Status Date / Time hydroxyzine [From Vistaril] Allergy Vomiting Verified 08/17/19 09:51 Exam Intake and Output 11/03/19 11/04/19 11/04/19 22:59 06:59 14:59 Other: Weight 0 g - OBG Physical Exam Abdomen: bowel sounds normal, no diffuse tenderness, no bruit present, no guarding noted, no hepatomegaly, no splenomegaly, no mass Vulva: both: normal Vagina: normal moisture, no discharge Cervix: no lesion, no discharge Uterus: normal size, normal contour Results Ultrasound done in August of last year showed normal endometrial thickening with a 3 cm fundal fibroid. Assessment and Plan Assessment: This is a pleasant 44-year-old 0 para 0 female with significant menorrhagia interfering with daily activities. Patient I discussed options for treatment and she is requesting endometrial ablation. Long discussion with her about the surgery and risks including risks of infection, bleeding, possible uterine perforation, and/or thermal injury. She also understands that this is not a form of control and that she needs to use some form of reliable control to prevent . All patient's questions are answered and a written consent is obtained. Plan is hysteroscopy, D&C, and NovaSure endometrial ablation. (1) Menorrhagia Status: Chronic Code(s): N92.0 - EXCESSIVE AND FREQUENT MENSTRUATION WITH REGULAR CYCLE SNOMED Code(s): 260588330
[~2019-11-05 05:55] MED LIST changes: +DEXAMETHASONE SOD PHOSPHATE 10 MG/ML 1 ML VIAL IV ONE; -FAMOTIDINE 20 MG/2 ML VIAL IV PRN; +HYDROmorphone 0.5 MG/0.5 ML SYRINGE IVP PRN; -LIDOCAINE 1% 20 ML VIAL (10MG/ML) FOR IV START INTRADERMA PRN; +MIDAZOLAM 2 MG/2 ML VIAL IV PRN; +ONDANSETRON 4 MG/2 ML VIAL IVP ONE; -ONDANSETRON 4 MG/2 ML VIAL IVP PRN; +Pre Op ABX Message 1 EACH MISC MISCELLANE ONE; +SCOPOLAMINE 1.5MG/72HR PATCH TRANSDERM ONE; -ceFAZolin 2 GM in SODIUM CHLORIDE 0.9% 100 ML IVPB ONE
[2019-11-05] MEDS ORDERED: LACTATED RINGERS 1,000 ML IV ONE (06:28)
[2019-11-05] MEDS ORDERED: MIDAZOLAM 2 MG/2 ML VIAL ONE (07:15)
[2019-11-05] MEDS ORDERED: fentaNYL (PF) 50 MCG/ML 2 ML AMP ONE (07:15)
[2019-11-05] MEDS ORDERED: KETOROLAC 30 MG/ML 1 ML VIAL ONE (07:15)
[2019-11-05] MEDS ORDERED: PROPOFOL 10 MG/ML 20 ML VIAL IV ONE (07:15)
[2019-11-05] MEDS ORDERED: LIDOCAINE 1% INJ 10MG/ML (20 ML MDV) ONE (07:15)
[2019-11-05 08:04] VITALS: TEMP 97.6
--- NOTE | 2019-11-05 08:05 | P.OP ---
Date of Procedure: 11/05/19 Preoperative Diagnosis: Menorrhagia Postoperative Diagnosis: Same Procedure(s) Performed: #1: Hysteroscopy. #2: Dilation and curettage. #3: NovaSure endometrial ablation Anesthesia: other (LMA) Surgeon: Zohaib Weber Estimated Blood Loss (ml): 10 Urine output (ml): 50 Pathology: other (Uterine curettings) Condition: stable Disposition: PACU Indications for Procedure: Please see dictated H&P for intimate details of this patient's admission. Brief summary this pleasant 44-year-old 0 para 0 female with long-standing menorrhagia requesting NovaSure endometrial ablation for treatment. Patient understands this procedure and risks and risks of infection, bleeding, possible uterine perforation, and/or thermal injury. All the patient's questions are answered and a written consent is obtained. Operative Findings: This patient had a normal-appearing endometrial cavity. There was some impingement at the fundal portion of a intramural fibroid. Description of Procedure: This patient is taken to the operating room where she is laid in the supine position. She subsequently undergoes general anesthesia with an LMA. With an adequate level of anesthesia she is placed in dorsal lithotomy position. She has a vaginal perineal prep and drape. Examination under anesthesia shows a slightly retroverted uterus of normal size. I placed a weighted speculum posterior vagina. Anterior lip of the cervix is gravid and Allis clamp. The bladder is drained for 50 mL of clear urine. I gently sound the uterus to approximately 8 cm. Gentle dilation is then done of the endocervix to allow the hysteroscope easily uterine cavity. Using saline solution, hysteroscopy is performed and the uterine cavity length was measured to be 5.5 cm. The endometrial cavity does appear normal there is some impingement from the intramural fibroid most likely in the fundal region but is small amount. The hysteroscope was then removed. Cervix is dilated more to allow a small curette easily and the uterine cavity. A gentle but thorough 4 quadrant curettage is done for adequate sampling. With this completed the NovaSure device is then opened it appears to be intact. It is set at a length of 5.5 cm and then seated in place and opens up to a width of 4.0 cm. With this done it passes the cavity integrity test is then enabled to 121 W setting for 48 seconds. NovaSure device is then removed. Again it appears to be intact. Hysteroscopy is then performed and the uterine cavity appears to be completely ablated. With this done the procedure is then ended. The Allis clamp and weighted speculum removed. All counts are correct 3. There are no complications. Patient is awakened from anesthesia and taken recovery room in satisfactory condition
[2019-11-05 08:26] VITALS: RESP 16
[2019-11-05 08:53] VITALS: BP 116/81; PULSE 64
== END 2019-11-05 09:11 | disposition home or self-care (01) ==
LOC: OR 05:55
PROVIDERS: ATTEND Obstetrics & Gynecology
DX: N92.0 Excessive and frequent menstruation with regular cycle (principal); N85.8 Other specified noninflammatory disorders of uterus; E03.9 Hypothyroidism, unspecified; Z88.8 Allergy status to other drugs, medicaments and biological substances; Z79.890 Hormone replacement therapy; Z98.890 Other specified postprocedural states; Z82.49 Family history of ischemic heart disease and other diseases of the circulatory system; Z80.3 Family history of malignant neoplasm of breast; Z80.1 Family history of malignant neoplasm of trachea, bronchus and lung; Z80.7 Family history of other malignant neoplasms of lymphoid, hematopoietic and related tissues
CPT/HCPCS: 81025; 58563; J2250; J1100; J2405; J2001; J3010; J1885; J2704; 88305

== ENCOUNTER → 2019-12-21 | Outpatient (CLI) | payer BC ==
[2019-12-21 09:05] VITALS: BP 130/82; PULSE 74; RESP 18; TEMP 97.9
--- NOTE | 2019-12-21 09:41 | P.HPOB ---
History of Present Illness H&P Date: 12/21/19 Chief Complaint: The patient is here for her routine gynecologic exam and ma mmogram. This is a 44-year-old G0 with an LMP of 12/18/2019. The patient had an endometrial ablation done on 11/05/2019 and this was performed by Dr. Zohaib Weber. This was done for hypermenorrhea. She did complete 1 menstrual period in October which was still fairly heavy but had less clotting. She still had to change her protection about every 1 hour during the heavy flow. Menstrual periods have been regular every month. Her LMP started 3 days ago and is not very heavy at this time. She seems to have less cramping after the endometrial ablation. She is otherwise without gynecologic complaints. She states her boyfriend is planning to get a vasectomy in the near future. Review of Systems The patient's weight has been stable over the last year. She denies respiratory, cardiac, or G.I. problems. 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 Hypermenorrhea. History of Any Multi-Drug Resistant Organisms: None Reported Past Surgical History: Breast Surgery, Orthopedic Surgery, Uterine Ablation Additional Past Surgical History / Comment(s): Breast reduction surgery. RT Ankle surgery. Endometrial ablation 11/05/2019. Additional Past Anesthesia/Blood Transfusion Reaction / Comment(s): over medicated during her breast reduction, pt was 13 yrs old Past Psychological History: No Psychological Hx Reported Smoking Status: Never smoker Past Alcohol Use History: Occasional (3 per month) Past Drug Use History: None Reported Additional History: She has been with her boyfriend since 2001 and lives with him. She lost her job in 2019 and is currently unemployed. - Past Family History Father Family Medical History: Congestive Heart Failure (CHF), Myocardial Infarction ([place]) Mother Family Medical History: No Reported History Additional Family Medical History / Comment(s): Maternal aunt had breast cancer. Maternal grandfather had lung cancer. Another and had non-Hodgkin's lymphoma. Medications and Allergies Home Medications Medication Instructions Recorded Confirmed Type Levothyroxine Sodium [Synthroid] 50 mcg PO DAILY 10/27/16 12/21/19 History Cholecalciferol [Vitamin D3] 1,000 unit PO DAILY 09/08/18 12/21/19 History Ibuprofen [Motrin] 600 mg PO Q6HR PRN #40 tab 11/05/19 12/21/19 Rx Allergies Allergy/AdvReac Type Severity Reaction Status Date / Time hydroxyzine [From Vistaril] Allergy Vomiting Verified 12/21/19 09:02 Exam Vital Signs Temp Pulse Resp BP Pulse Ox 12/21/19 09:04 97.9 F 74 18 130/82 97 Intake and Output 12/20/19 12/21/19 12/21/19 22:59 06:59 14:59 Other: Weight 100.244 kg Height 5 feet 5 inches, weight 221 pounds, BMI 36.8. This is a well-developed well-nourished heavyset white female who is alert and o riented times 3 in no acute distress. HEENT: Within normal limits. NECK: Supple without mass or thyromegaly. CHEST AND LUNGS: Clear to auscultation. HEART: Regular rate and rhythm. BREASTS: Are without mass or discharge. They are consistent with previous bilateral breast reduction surgery. AXILLARY EXAM: Negative for adenopathy. BACK: Negative for CVA tenderness. ABDOMEN: Soft, nontender, without palpable masses. PELVIC EXAM: Normal external genitalia. Cervix and vagina appear normal. There is a small amount of menstrual blood in the vagina consistent with her menstrual period. There is no unusual discharge. There is no evidence of prolapse. The uterus is midposition, approximately 10 weeks size and somewhat firm consistent with a uterine fibroid. The uterus is nontender. There are no palpable adnexal masses or tenderness. RECTAL EXAM: negative for mass or tenderness and is negative for occult blood. EXTREMITIES: Nontender. IMPRESSION: 1. 44-year-old female with known uterine fibroid measuring impression a 3 cm by ultrasound. 2. History of hypermenorrhea status post recent endometrial ablation on 11/05/2019. PLAN: 1. Pap smear was performed. 2. Self breast awareness was discussed with the patient. 3. Screening mammogram will be done today. 4. The patient will keep a menstrual calendar. We have discussed other options if her menstrual periods continue to be heavy. We have discussed medications as well as hysterectomy as options. 5. She was advised to return in one year for her annual well woman exam and as needed.
--- NOTE | 2019-12-22 11:02 | MM ---
Reason for exam: screening (asymptomatic). Last mammogram was performed 1 year and 5 months ago. History: Patient is nulliparous. Family history of breast cancer in maternal aunt at age 55. Reductions of both breasts, 1986. Physical Findings: A clinical breast exam by your physician is recommended on an annual basis and results should be correlated with mammographic findings. MG Screening Mammo w CAD Bilateral CC and MLO view(s) were taken. Prior study comparison: July 31, 2018, bilateral MG diagnostic mammo w CAD [facility]. July 30, 2017, bilateral MG 3d screening mammo w/cad. There are scattered fibroglandular densities. There are benign appearing round calcifications bilaterally. Asymmetric breast tissue right breast, stable. There is no discrete abnormality. ASSESSMENT: Benign, BI-RAD 2 RECOMMENDATION: Routine screening mammogram of both breasts in 1 year.
== END | disposition home or self-care (01) ==
LOC: WWCWWP 08:50
PROVIDERS: ATTEND Obstetrics & Gynecology
DX: Z12.31 Encounter for screening mammogram for malignant neoplasm of breast (principal)
CPT/HCPCS: 77067

== ENCOUNTER → 2020-05-09 | Outpatient (CLI) | payer BC ==
[2020-05-09 08:19] VITALS: BP 120/73; PULSE 64; RESP 18; TEMP 98
--- NOTE | 2020-05-09 08:57 | P.PN ---
Progress Note - Text Progress Note Date: 05/09/20 Chief Complaint: Pelvic and back pain with her LMP. HPI: This is a 44-year-old G0 with an LMP of 04/29/2020. Her partner is status post vasectomy. The patient is status post endometrial ablation in November 2019. She states her menstrual periods have been variable in flow, but generally she has had less clotting since the ablation. She states her LMP was unusually painful with bilateral pelvic pain and back cramping. She notified Dr. Weber, who did the endometrial ablation, and he recommended taking Motrin 800 mg which did seem to help somewhat. She denies dysuria or urinary symptoms. ROS: She denies fever, respiratory, cardiac, or GI problems. PE: Blood pressure: 120/73, Height: 5 feet 6 inches, Weight: 229 pounds, Temperature: 98.0, Pulse: 64. This is a well developed, well nourished, heavyset white female who is alert and orientedx3, in no acute distress. Abdomen: Obese, soft, nontender, without palpable mass. Pelvic exam: Normal external genitalia. Cervix and vagina appear normal. There is no unusual discharge. There is no cervical motion tenderness. There is mild tenderness anterior to the cervix in the area of the bladder. There is also mild left adnexal tenderness without palpable mass. There is minimal right adnexal tenderness without mass. The uterus is mid positioned in approximately 6-8 weeks size which is considered mildly enlarged. The uterus itself does not seem to be tender, but the bladder does seem mildly tender. Impression: 1. 44-year-old premenopausal female who is status post endometrial ablation with acute dysmenorrhea and mild improvement of her hypermenorrhea following her ablation. 2. Mid pelvic and left pelvic tenderness which seems the greatest over the bladder. 3. History of uterine fibroid. Plan: 1. The patient will keep a menstrual and symptom calendar. 2. Urine will be obtained for urinalysis and culture with sensitivity. 3. Pelvic ultrasound was recommended and the order slip was given to the patient for this. 4. She will continue to use Motrin as directed. 5. If she is having recurrent significant dysmenorrhea or hypermenorrhea, consider referral back to Dr. Weber for further evaluation and possible hysterectomy. Time spent with the patient: 20 minutes
[2020-05-09 16:17] LABS: Appearance,Urine Clear (Clear); Bilirubin,Urine Negative (Negative); Blood,Urine Negative (Negative); Color,Urine Yellow; Glucose,Urine (UA) Negative (Negative); Ketones,Urine Negative (Negative); Leukocyte Esterase,Urine Negative (Negative); Nitrite,Urine Negative (Negative); PH, Urine 5.5 (5.0-8.0); Protein,Urine Negative (Negative); Specific Gravity,Urine 1.021 (1.001-1.035); Urobilinogen,Urine <2.0 mg/dL (<2.0)
--- NOTE | 2020-05-09 16:23 | US ---
EXAMINATION TYPE: US pelvic complete DATE OF EXAM: 05/09/2020 COMPARISON: US & CT, ultrasound 09/17/2018 CLINICAL HISTORY: R10.2 Pelvic pain,R68.89 Abnormal pelvic exam. Pt states LLQ tenderness on palpatio n by physician, pt had ablation October 2019, states she is still having heavy vaginal bleeding, pt state s known fibroid TECHNIQUE: Transabdominal (TA). Transabdominal sonographic images of the pelvis were acquired. Date of LMP: 04/29/2020 EXAM MEASUREMENTS: Uterus: 13.4 x 7.2 x 6.3 cm Endometrial Stripe: 0.7 cm Right Ovary: 2.3 x 2.0 x 1.5 cm Left Ovary: 2.3 x 2.3 x 1.2 cm 1. Uterus: Anteverted Heterogeneous with known fibroid at fundus redemonstrated felt to have incre ased in size when compared to previous= 6.4 x 5.4 x 5.0 cm, previous measurement 2.8 x 3.1 x 3.0 cm 2. Endometrium: Only lower uterine segment of endo visualizes, 0.7 cm this is best estimate, correla te for thickness for history of ablation 3. Right Ovary: Within normal limits 4. Left Ovary: wnl 5. Bilateral Adnexa: wnl 6. Posterior cul-de-sac: wnl IMPRESSION: 1. Increased size uterine fibroid. 2. Poor visualization of the endometrial stripe which is typical post ablation.
--- NOTE | 2020-05-10 12:31 | P.PN ---
Progress Note - Text Progress Note Date: 05/10/20 OUTPATIENT FOLLOW-UP NOTE TEST(S)/RESULTS: Test results from 05/09/2020 include negative urinalysis and pelvic ultrasound which showed an increase in her uterine fibroid size which went from 3.1 cm to 6.4 cm. METHOD OF NOTIFICATION: A message with this result was left on the patient's voicemail. PATIENT COMMENTS: DIAGNOSIS: Negative urinalysis and increasing uterine fibroid size. DISCUSSION: We will await urine culture results as well. PLAN: I will try to contact the patient when I am back in the office to further discuss her enlarging uterine fibroid as well as possible options in dealing with her dysmenorrhea.
== END | disposition home or self-care (01) ==
LOC: WWCWWP 08:06
PROVIDERS: ATTEND Obstetrics & Gynecology
DX: D25.9 Leiomyoma of uterus, unspecified (principal); Z98.890 Other specified postprocedural states
CPT/HCPCS: 76856; 81003; 87086

== ENCOUNTER → 2020-07-03 | Outpatient (CLI) | payer BC ==
[2020-07-03 15:32] LABS: Basophils # (A) 0.04 X 10*3/uL (0.00-0.10); Basophils % (A) 0.7 %; Eosinophils # (A) 0.13 X 10*3/uL (0.04-0.35); Eosinophils % (A) 2.2 %; HCT 41.8 % (37.2-46.3); HGB 13.5 g/dL (12.0-15.0); Lymphocytes # (A) 1.55 X 10*3/uL (0.90-5.00); Lymphocytes % (A) 26.3 %; MCH 28.5 pg (27.0-32.0); MCHC 32.3 g/dL (32.0-37.0); MCV 88.4 fL (80.0-97.0); Mean Platelet Volume 10.4 fL (9.5-12.2); Monocytes # (A) 0.43 X 10*3/uL (0.20-1.00); Monocytes % (A) 7.3 %; Neutrophils # (A) 3.72 X 10*3/uL (1.80-7.70); Platelet Count 264 X 10*3/uL (140-440); RBC 4.73 X 10*6/uL (4.10-5.20); RDW 13.2 % (11.5-14.5)
[2020-07-03 16:07] LABS: African American GFR (CKD) 102.5 (60.0-200.0); Anion Gap 8.9 mmol/L (4.00-12.00); Carbon Dioxide 26.1 mmol/L (21.6-31.8); Non-African American GFR(CKD) 88.4 (60.0-200.0); Potassium 4.3 mmol/L (3.5-5.5)
== END | disposition home or self-care (01) ==
LOC: LABWHC1 08:50
PROVIDERS: ATTEND Obstetrics & Gynecology
DX: Z01.818 Encounter for other preprocedural examination (principal); N94.10 Unspecified dyspareunia; N92.0 Excessive and frequent menstruation with regular cycle; N94.6 Dysmenorrhea, unspecified; D25.9 Leiomyoma of uterus, unspecified
CPT/HCPCS: 36415; 80051; 82565; 82947; 84520; 85025; 87086

== ENCOUNTER 2020-07-10 06:15 | Day surgery (SDC) | payer BC ==
[2020-07-04 15:05] VITALS: BMI 36.6
--- NOTE | 2020-07-07 10:15 | HP ---
HISTORY AND PHYSICAL PREOPERATIVE HISTORY AND PHYSICAL: DATE OF SURGERY: Friday, July 10, 2020 HISTORY OF PRESENT ILLNESS: This is a 44-year-old 0 that presents with complaints of increasing dysmenorrhea. She of note has an enlarging uterine fibroid in addition. Ultrasound completed on 05/09 at [facility] revealing an enlarged uterus of 13 cm with a fundal fibroid of 6.4 x 5.4 x 5.0. The patient states her menstrual cycles are heavy and long despite having a uterine ablation done in November of 2019. As stated above, she is noting into increased dysmenorrhea since the ablation and requested definitive treatment with hysterectomy. PAST MEDICAL HISTORY: Significant for hypothyroidism. PAST SURGICAL HISTORY: 1. Ankle surgery. 2. Breast reduction. 3. Endometrial ablation completed in November of 2019. ALLERGIES: VISTARIL. REPRODUCTIVE HISTORY: As stated above, she is a 0. Menstrual cycles are regular q. Month with a heavy long cycle. She does note clots with her menstrual cycles. SOCIAL HISTORY: She is a nonsmoker, admits to moderate drinking. She denies recreational drug use and she is . REVIEW OF SYSTEMS: She denies body aches or night sweats. She denies headaches or sinus congestion. She denies chest pain or shortness of breath. She denies nausea, vomiting, diarrhea, or constipation. She does admit to severe dysmenorrhea and menorrhagia symptoms. PHYSICAL EXAMINATION: Vital signs are noted to be stable. This is a well-nourished, well-developed, non female in no acute distress. Head is noted to be normocephalic and atraumatic. Her breathing is noted to be nonlabored. Her heart has a regular rate and rhythm. Her abdomen is nontender to palpation. Her genitourinary exam, external genitalia is noted to be normal for age. No lesions are appreciated. The vaginal vault is noted to be normal with pink rugae. The bladder is nontender to palpation. The cervix appears healthy with no lesions. The uterus is nontender and noted to be 12 to 14 weeks in size, slightly irregular and bulky with normal mobility. No adnexal masses are appreciated. The perineum is noted to be normal. ASSESSMENT: 1. Dysmenorrhea. 2. Dyspareunia. 3. Fibroid uterus. 4. Menorrhagia. PLAN: Discussed with the patient robotic-assisted vaginal hysterectomy given the uterine size and fundal uterine fibroid. The patient has no prior abdominal surgeries or C- sections. Surgery is reviewed in detail including, but not limited to infection, bleeding, damage to bladder, bowel, ureteric injury. I did discuss ovarian conservation given her age in addition. She wishes ovarian conservation. If ovaries appear grossly abnormal, she requests removal. We will plan robotic-assisted vaginal hysterectomy with bilateral salpingectomy, possible bilateral salpingo-oophorectomy, diagnostic cystoscopy, possible open to complete procedure. All questions were answered to patient's satisfaction. She wishes to proceed. MMODL / IJN: [id number] /
[~2020-07-10 06:15] MED LIST changes: +ACETAMINOPHEN IV (For NPO) 1,000 MG in EMPTY BAG 1 BAG IVPB ONE; -DEXAMETHASONE SOD PHOSPHATE 10 MG/ML 1 ML VIAL IV ONE; +DEXAMETHASONE SOD PHOSPHATE 4 MG/ML 1 ML VIAL IV ONE; -LACTATED RINGERS 1,000 ML IV SCH; -MIDAZOLAM 2 MG/2 ML VIAL IV PRN; -Pre Op ABX Message 1 EACH MISC MISCELLANE ONE; -SCOPOLAMINE 1.5MG/72HR PATCH TRANSDERM ONE
[2020-07-10] MEDS ORDERED: LIDOCAINE 1% (10MG/ML) FOR IV START INTRADERMA ONE (07:10)
[2020-07-10] MEDS: LACTATED RINGERS 1,000 ML IV SCH (07:12)
[2020-07-10] MEDS ORDERED: SCOPOLAMINE 1.5MG/72HR PATCH TRANSDERM ONE (07:12)
[2020-07-10] MEDS ORDERED: MIDAZOLAM 2 MG/2 ML VIAL ONE (07:37)
[2020-07-10] MEDS ORDERED: ROCURONIUM 10 MG/ML (10 ML VIAL) IV ONE (07:37)
[2020-07-10] MEDS ORDERED: LIDOCAINE 1% INJ 10MG/ML (20 ML MDV) ONE (07:37)
[2020-07-10] MEDS ORDERED: PROPOFOL 10 MG/ML 20 ML VIAL IV ONE (07:37)
[2020-07-10] MEDS ORDERED: NEOSTIGMINE 1 MG/ML 10 ML VIAL ONE (07:37)
[2020-07-10] MEDS ORDERED: fentaNYL (PF) 50 MCG/ML 2 ML AMP ONE (07:37)
[2020-07-10] MEDS ORDERED: GLYCOPYRROLATE 0.2 MG/ML 2 ML VIAL ONE (07:37)
[2020-07-10] MEDS ORDERED: HYDROmorphone (PF) 1 MG/ML ONE (07:37)
[2020-07-10] MEDS ORDERED: BUPIVACAINE (PF) 0.25% 30 ML VIAL SQ ONE (08:20)
[2020-07-10] MEDS ORDERED: LACTATED RINGERS 1,000 ML IV ONE ×2 (08:45)
[2020-07-10] MEDS ORDERED: Acetaminophen-Codeine 300-30mg TAB PO PRN (09:54)
[2020-07-10] MEDS ORDERED: SIMETHICONE 80 MG CHEWABLE PO PRN (09:54)
[2020-07-10] MEDS ORDERED: ONDANSETRON 4 MG/2 ML VIAL IVP PRN (09:54)
--- NOTE | 2020-07-10 10:11 | P.OP ---
Date of Procedure: 07/10/20 Preoperative Diagnosis: Enlarged uterus, uterine fibroids, menorrhagia Postoperative Diagnosis: Same Procedure(s) Performed: Robotic-assisted vaginal hysterectomy with bilateral salpingectomy, diagnostic cystoscopy Anesthesia: BINDU Surgeon: Batsheva Arce Medical Accounts Receivable Specialist #1: Maty Key Estimated Blood Loss (ml): 50 IV fluids (ml): 1,100 Urine output (ml): 100 Pathology: other (Uterus cervix bilateral fallopian tubes) Condition: stable Disposition: PACU Indications for Procedure: Enlarged uterus with fibroids, heavy menstrual bleeding Operative Findings: Enlarged uterus with fundal fibroid, bilateral ovaries appeared normal. Suspicion of posterior cul-de-sac endometriosis and filmy adhesions in the left adnexa. Description of Procedure: Patient was seen in the preoperative area and informed consent was obtained. Procedure was reviewed and patient stated understanding all questions were answered to patient's satisfaction. Patient was taken back to the operating suite where general anesthesia was obtained without difficulty by the anesthesia department. She was then prepped and draped in normal sterile fashion in the dorsal lithotomy position. A Rosenbreg catheter was then placed under sterile technique. Weighted speculum posterior vaginal vault the anterior lip of the cervix is visualized and grasped with a single-tooth tenaculum. The endocervical canal was then dilated. A Angelantoni uterine manipulator was advanced into the uterus as a means to manipulate the uterus throughout the procedure. The cervical cap was placed snugly against the cervix and the balloon was insufflated with 10 mL of air. All instruments were then removed from the patient's vaginal vault. Attention was then turned to the patient's abdomen where 2 finger breaths above the umbilicus 8 mm skin incision is made. Through this incision the Veress needles placed. Once the Veress needle was deemed to be in the proper position with a drop of CO2 pressure CO2 insufflation was allowed to occur. At this time the da Mario trocar with the laparoscope in place was placed through the skin incision and toward the pneumoperitoneum under direct visualization. The trocar was removed the sheath remaining in place of the above-noted findings. At this time the additional port sites are placed at 10 cm lateral and 37 m inferior to the midline port these are 8 mm ports and placed under direct visualization. In the left upper quadrant a 12 mm trocar and sleeve is placed under direct visualization. At this time the da Mario robot was docked in the usual fashion. In the right operative arm the monopolar scissors is placed in the left operative arm the bipolar forceps is placed. Attention was then turned to the left adnexa the left fallopian tube was grasped coagulated and transected. Filmy adhesions were noted from the left ovary to the uterine wall these were taken down sharply. Hemostasis was appreciated throughout. The uterine ovarian ligament was then visualized coagulated distally and proximally divided. This continued through the broad and toward the round which was coagulated and transected. Hemostasis was appreciated. The bladder flap from the left was then created using sharp and blunt dissection. The ascending branch the uterine artery was visualized coagulated and transected. Hemostasis was appreciated. Attention was then turned to the right adnexa the right fallopian tube was elevated and coagulated the uterine ovarian ligament was then coagulated distally and proximally and divided. This continued through the broad and toward the round which was regular distally proximal plane divided. The bladder flap from the right was then created using sharp and blunt dissection. At this time a Ray-Makenzie was introduced into the abdomen as a means to dissect the bladder bluntly away from the operating field. The ascending branch the uterine artery from the right was then coagulated distally and proximally and transected. At this time the only remaining attachment was a vaginal attachment therefore colpotomy incision was made and circumference of fashion uterus was then delivered through the vaginal opening with the fallopian tubes. The pelvis was then copiously irrigated and the vaginal cuff was closed with 0 Vicryl in interrupted fashion. 5 sutures of 0 Vicryl were used to obtain closure. The pelvis was then irrigated copiously and the vaginal cuff was noted to be hemostatic. The right ureter was noted to be pulsating in a normal fashion. All pedicles were noted to be hemostatic. FloSeal was placed along the vaginal cuff. At this time all instrument removed from the patient's abdomen attention was then turned to the patient's Rosenberg catheter after the da Mario was undocked. The Rosenberg was removed without difficulty clear yellow urine was noted within the Rosenberg tube. A cystoscopy was then performed. The cystoscope was placed through the urethra and toward the bladder bladder bubble was noted a 360 evaluation of the bladder revealed an intact bladder mucosa. Both ureteral orifices were noted to be spilling clear yellow urine. The cystoscope was removed the Rosenberg catheter was replaced. The vaginal vault was then inspected no lacerations were noted. Attention was then turned to the patient's abdomen where the skin incisions were closed with 4-0 Vicryl in a subarticular fashion. Suture strips and sterile dressings were applied as needed. All counts were noted to be correct 2 thinning of the procedure. Patient tolerated procedure well was taken the recovery room awake in stable condition.
[2020-07-10] MEDS ORDERED: IBUPROFEN IV 800 MG in SODIUM CHLORIDE 0.9% 250 ML IV ONE (11:00)
[2020-07-10 13:23] VITALS: RESP 16
[2020-07-10] MEDS: IBUPROFEN 600 MG TAB PO PRN (17:14)
[2020-07-10] MEDS: Acetaminophen-Codeine 300-30mg TAB PO PRN (20:36)
[2020-07-10] MEDS: SENNOSIDES-DOCUSATE SODIUM 1 EACH TAB PO SCH (20:42)
[2020-07-11] MEDS: IBUPROFEN 600 MG TAB PO PRN ×2 (00:15→10:00)
[2020-07-11] MEDS: Acetaminophen-Codeine 300-30mg TAB PO PRN (03:57)
[2020-07-11] MEDS ORDERED: LEVOTHYROXINE 50 MCG TAB PO SCH (06:30)
[2020-07-11 07:04] LABS: Basophils % (A) 0 %; Eosinophils % (A) 0 %; HCT 39.5 % (34.0-46.0); HGB 13.1 gm/dL (11.4-16.0); Lymphocytes # (A) 1.5 k/uL (1.0-4.8); Lymphocytes % (A) 14 %; MCHC 33.3 g/dL (31.0-37.0); Mean Platelet Volume 7.2; Monocytes # (A) 0.6 k/uL (0-1.0); Monocytes % (A) 6 %; Neutrophils % (A) 79 %; Platelet Count 227 k/uL (150-450); RBC 4.54 m/uL (3.80-5.40); RDW 13.8 % (11.5-15.5); WBC 10.2 k/uL (3.8-10.6)
[2020-07-11] MEDS: LACTATED RINGERS 1,000 ML IV SCH (08:02)
[2020-07-11] MEDS: SENNOSIDES-DOCUSATE SODIUM 1 EACH TAB PO SCH (08:05)
[2020-07-11 08:19] VITALS: BP 122/78; PULSE 80; TEMP 98
--- NOTE | 2020-07-11 09:27 | P.DS ---
Providers Date of admission: 07/11/2020 Expected date of discharge: 07/11/20 Attending physician: Batsheva Arce Primary care physician: Rebeca Lee MD - Discharge Diagnosis(es) (1) Uterine fibroid Current Visit: Yes Status: Acute (2) Enlarged uterus Current Visit: Yes Status: Acute (3) Menorrhagia Current Visit: No Status: Chronic Hospital Course: This pleasant 44-year-old 0 non patient presents to the hospital for scheduled robotic-assisted vaginal hysterectomy with bilateral salpingectomy, diagnostic cystoscopy. Patient has a history of heavy menstrual bleeding with clots. Patient had an ultrasound completed noting an enlarged uterus with a fundal fibroid. Fibroid was noted to be enlarging since her previous ultrasound. Patient elected definitive treatment with robotic cyst vaginal hysterotomy. Patient was admitted and robotic-assisted vaginal hysterectomy with bilateral salpingectomy, diagnostic cystoscopy was performed without difficulty. For further details on the operation please see the operative report. Patient's postoperative course has been uneventful. On this postoperative day #1 she is ambulatory and voiding without difficulty. She is tolerating a regular diet without nausea or vomiting. She states her pain is well-controlled. She denies concerns and would like discharge home. Patient Condition at Discharge: Good Plan - Discharge Summary Discharge Rx Participant: Yes New Discharge Prescriptions: No Action Levothyroxine Sodium [Synthroid] 50 mcg PO DAILY Vitamin D(Dose Unknown) 1 tab PO QAM Discharge Medication List Levothyroxine Sodium [Synthroid] 50 mcg PO DAILY 10/27/16 [History] Vitamin D(Dose Unknown) 1 tab PO QAM 07/04/20 [History] Follow up Appointment(s)/Referral(s): Batsheva Arce DO [Doctor of Osteopathic Medicine] - 2 Weeks Patient Instructions/Handouts: *Surgery [facility] - Scopalamine Patch Instructions, Laparoscopic Hysterectomy (DC), Laparoscopic Hysterectomy (GEN) Activity/Diet/Wound Care/Special Instructions: Patient can expect. Like bleeding typically after 2 weeks postoperatively. [id number] ibuprofen in addition to Tylenol No. 3 as needed for pain. I did recommend senna S as needed, stool softener. Patient is to follow-up in the office in 2 weeks. Should she have any concerns prior to this appointment she is urged to call the office and given sooner. Discharge Disposition: HOME SELF-CARE
== END 2020-07-11 10:26 | disposition home or self-care (01) ==
LOC: OR 06:15 → 4FBP 09:53 → OR 07-11 10:26
PROVIDERS: ATTEND Obstetrics & Gynecology Obstetrics
DX: D25.1 Intramural leiomyoma of uterus (principal); N72 Inflammatory disease of cervix uteri; N87.9 Dysplasia of cervix uteri, unspecified; N88.8 Other specified noninflammatory disorders of cervix uteri; N73.6 Female pelvic peritoneal adhesions (postinfective); E03.9 Hypothyroidism, unspecified; Z79.890 Hormone replacement therapy; Z88.8 Allergy status to other drugs, medicaments and biological substances; Z98.890 Other specified postprocedural states
CPT/HCPCS: 81025; 86900; 86901; 85025; 86850; 88307; 58552; C1762; J1100; J0690; J2405; J0131; J1741

== ENCOUNTER → 2020-12-22 | Outpatient (CLI) | payer OTHER ==
--- NOTE | 2020-12-28 11:16 | MM ---
Reason for exam: screening (asymptomatic). Last mammogram was performed 1 year ago. History: Patient is nulliparous. Family history of breast cancer in maternal aunt at age 55. Reductions of both breasts, 1986. Physical Findings: A clinical breast exam by your physician is recommended on an annual basis and results should be correlated with mammographic findings. MG 3D Screening Mammo W/Cad Bilateral CC and MLO view(s) were taken. Prior study comparison: December 21, 2019, bilateral MG screening mammo w CAD. July 31, 2018, bilateral MG diagnostic mammo w CAD KAREN. There are scattered fibroglandular densities. No significant changes when compared with prior studies. ASSESSMENT: Negative, BI-RAD 1 RECOMMENDATION: Routine screening mammogram of both breasts in 1 year.
== END | disposition home or self-care (01) ==
LOC: RADMAMWWP 16:08
PROVIDERS: ATTEND Internal Medicine
DX: Z12.39 Encounter for other screening for malignant neoplasm of breast (principal)
CPT/HCPCS: 77063; 77067

== ENCOUNTER → 2021-01-10 | Outpatient (CLI) | payer OTHER ==
[2021-01-10 09:34] VITALS: BP 121/78; PULSE 74; RESP 18; TEMP 98.3
--- NOTE | 2021-01-10 10:18 | P.PN ---
Progress Note - Text Progress Note Date: 01/10/21 Chief Complaint: Low abdominal and pelvic tenderness during the past 3 months. HPI: This is a 45-year-old G0 with an LMP of June 2020. She is status post robotic assisted vaginal hysterectomy with bilateral salpingectomy in July 2020. The ovaries were not removed. The patient states she had an unremarkable postoperative course during the first 2 months. She will return to work as planned. She states she started having low abdominal tenderness in September of this year. She states it would be typically if she pushed or if someone pushed on the low abdomen. She also noticed some discomfort with deep penetration intercourse. The discomfort has been on both sides of the low abdomen and pelvis, but now seems to be greater on the left side. She seems to notice the discomfort more when sitting. Currently the pain is 0 out of 10 when she is not pushing on her abdomen. The tenderness seems to have been the greatest around September of this year and has gotten slightly better. She denies any significant hot flashes. ROS: She denies fever, respiratory or cardiac problems. She also denies GI problems and moves her bowels typically daily. : She denies any urinary tract infection symptoms, but states she may feel slightly more tender when her bladder is full. PE: Blood pressure: 121/78, Height: 5 feet 5 inches, Weight: 225 pounds, Temperature: 98.3, Pulse: 74. Pulse oximeter 95%. This is a well developed, well nourished, white female who is alert and orientedx3, in no acute distress. Abdomen: 1+ bowel sounds. Upon palpation to the upper abdomen, she states she does feel discomfort in the low abdomen. The abdomen is minimally distended. The low abdomen is slightly firmer than the upper abdomen which is soft. There is mild to moderate lower abdominal tenderness on the left side. There is mild tenderness in the suprapubic region and in the right lower quadrant. There is no rebound tenderness. There are no palpable masses. Pelvic exam: Normal external genitalia. Vagina appears normal with no unusual discharge. The vaginal cuff appears intact. Bimanual examination: The vaginal cuff is well supported. There is mild vaginal cuff tenderness and mild to moderate left adnexal tenderness. There is also mild right adnexal tenderness. There are no palpable pelvic masses. Rectovaginal exam: There are no rectal masses. There are no palpable pelvic masses with rectovaginal exam. Impression: 1. 45-year-old female who is 6 months status post vaginal hysterectomy and bilateral salpingectomy, with low abdominal and pelvic tenderness greater on the left side. Differential diagnosis will include ovarian cyst, other ovarian m ass, pelvic adhesions, and less likely GI tenderness and ovarian torsion. Plan: 1. Pelvic ultrasound will be done later today. 2. Depending on the ultrasound findings, we can consider options such as conservative management to see if the pain continues to improve, or referral back to Dr. Arce who did her recent hysterectomy. Time spent with the patient: 25 minutes
--- NOTE | 2021-01-10 15:17 | US ---
EXAMINATION TYPE: US pelvis complete transvag DATE OF EXAM: 01/10/2021 COMPARISON: US's CLINICAL HISTORY: R10.2,R68.89 VAG CUFF PELVIC TENDERNESS. vaginal hysterectomy 07/10/2020. TECHNIQUE: Transvaginal (TV) and Transabdominal (TA) . Transabdominal sonographic images of the pel vis were acquired. Transvaginal sonographic images were medically necessary to better assess the fol lowing anatomy: cystic area right adnexa. Date of LMP: 07/10/2020 EXAM MEASUREMENTS: Uterus: Surgically absent Endometrial Stripe: Surgically absent Right Ovary: large cystic area seen is believed to be ovary Left Ovary: 1.8 x 1.5 x 1.5 cm 1. Uterus: Surgically absent 2. Endometrium: Surgically absent 3. Right Ovary: 6.9 x 5.0 x 4.9 cm cystic area right adnexa is believed to represent right ovary as separate ovary not seen. 4. Left Ovary: wnl 5. Bilateral Adnexa: 6.9 x 5.0 x 4.9 cm cystic area right adnexa is believed to represent right ovar y as separate ovary not seen. 6. Posterior cul-de-sac: wnl Urinary bladder is decompressed but otherwise unremarkable IMPRESSION: 1. Right adnexal cyst. Follow-up in 6 weeks is recommended. If this fails to resolve, workup may be w arranted.
--- NOTE | 2021-01-11 16:13 | P.PN ---
Progress Note - Text Progress Note Date: 01/11/21 The pelvic ultrasound done on 01/10/21 shows a right adnexal cyst measuring 6.9x5.0x4.9cm. The patient was notified by phone. We will plan on repeating the ultrasound in 6-8 weeks. She is to call or go to the emergency room if she develops severe pain or problems. The order slip will be mailed to the patient. If the cyst stays the same or increases in size or if concerning features, consider referral for laparoscopic examination and removal.
== END | disposition home or self-care (01) ==
LOC: WWCWWP 09:12
PROVIDERS: ATTEND Obstetrics & Gynecology
DX: N83.8 Other noninflammatory disorders of ovary, fallopian tube and broad ligament (principal); R10.2 Pelvic and perineal pain; Z90.710 Acquired absence of both cervix and uterus; Z90.722 Acquired absence of ovaries, bilateral
CPT/HCPCS: 76830; 76856

== ENCOUNTER → 2021-03-06 | Outpatient (CLI) | payer OTHER ==
[2021-03-06 16:17] VITALS: BP 119/80; PULSE 78; RESP 16; TEMP 98.5
--- NOTE | 2021-03-06 17:08 | P.PN ---
Progress Note - Text Progress Note Date: 03/06/21 Chief Complaint: Follow-up for low abdominal and pelvic tenderness during the past 5 months. HPI: This is a 45-year-old G0 with an LMP of June 2020. She is status post robotic assisted vaginal hysterectomy with bilateral salpingectomy in July 2020. She started having lower abdominal tenderness about 3 months postop. I saw her on 01/10/2021 because of this discomfort. A pelvic ultrasound was ordered and was done on 01/10/2021. The ultrasound showed a 6.9 x 5.0 cm right adnexal cystic mass. There was no separate ovary seen. The plan was to manage this conservatively and repeat the ultrasound in 6-8 weeks. She did not schedule this ultrasound and does not have the order slip for this. She continues to have similar symptoms with low abdominal tenderness and tenderness with deep penetration during intercourse. She is not typically having any significant pain when she does not push on the abdomen or have intercourse. When she does push on the abdomen or when she is carrying something that pushes on the abdomen, her discomfort is around 3 or 4 out of 10. She also does feel slightly bloated. ROS: She denies respiratory, cardiac, or GI problems. She denies urinary symptoms PE: Blood pressure: 119/80, Height: 5 feet 5 inches, Weight: 224 pounds, Temperature: 98.5, Pulse: 78. Pulse oximeter 96%. This is a well developed, well nourished, heavyset white female who is alert and orientedx3, in no acute distress. Abdomen: Obese, soft with bilateral mild lower quadrant tenderness without rebound tenderness. There are no palpable masses. External genitalia: Normal Bimanual examination: There are no palpable masses but there is mild bilateral pelvic tenderness slightly greater on the left side. There is no evidence of prolapse. The vaginal cuff is well supported. Impression: 1. 45-year-old female who is 8 months status post robotic-assisted vaginal hy sterectomy with bilateral salpingectomy for benign reasons. 2. 5 month history of low abdominal tenderness and pelvic tenderness with sexual intercourse. 3. History of 6.9 x 5.0 cm right adnexal cyst by ultrasound on 01/10/2021. Differential diagnosis will include ovarian cyst, other ovarian mass, tubal remnant syndrome with resulting hydrosalpinx, and less likely non-gynecologic cystic mass. 4. Although I am not able to palpate a mass, it is likely that the cystic mass seen on 01/10/2021 is persistent based on her persistent symptoms which have not changed. Plan: 1. Pelvic ultrasound was scheduled for 03/08/2021 at 1 PM. 2. If the cystic mass persists, we will refer her to Dr. Arce, who did her hysterectomy, for laparoscopic examination with possible removal of the mass. Time spent with the patient: 20 minutes
== END ==
LOC: WWCWWP 15:58
PROVIDERS: ATTEND Obstetrics & Gynecology
DX: R10.30 Lower abdominal pain, unspecified (principal); Z87.42 Personal history of other diseases of the female genital tract; Z90.711 Acquired absence of uterus with remaining cervical stump; Z90.722 Acquired absence of ovaries, bilateral; Z88.6 Allergy status to analgesic agent

== ENCOUNTER → 2021-03-08 | Outpatient (CLI) | payer OTHER ==
--- NOTE | 2021-03-08 16:45 | US ---
EXAMINATION TYPE: US pelvis complete transvag DATE OF EXAM: 03/08/2021 COMPARISON: 01/10/2021 CLINICAL HISTORY: 45-year-old female R19.09, Right adnexal mass. Pelvic tenderness, ovarian cyst seen on prior, 0 TECHNIQUE: Transabdominal sonographic images of the pelvis were acquired. Date of LMP: 1 year ago FINDINGS: EXAM MEASUREMENTS: Right Ovary: 6.4 x 4.1 x 3.0cm Left Ovary: 1.9 x 1.1 x 1.4 cm 1. Uterus: surgically absent 2. Endometrium: surgically absent 3. Right Ovary: 5.2 x 2.9 x 2.3cm cyst (versus 6.9 x 5.0 x 4.9 cm, previously) 4. Left Ovary: wnl 5. Bilateral Adnexa: wnl 6. Posterior cul-de-sac: wnl IMPRESSION: 1. Status post hysterectomy. 2. Enlarged right ovary secondary to a 5.2 cm simple appearing cyst. This was measured at 6.9 cm, pre viously. If the patient is postmenopausal, annual follow-up ultrasound examination is recommended. Th is is almost certainly benign with a very low risk of malignancy.
--- NOTE | 2021-03-12 09:55 | P.PN ---
Progress Note - Text Progress Note Date: 03/12/21 Pelvic ultrasound done on 03/08/21 shows a benign appearing right adnexal cyst measuring 5.2x2.9x2.3cm (previous US on 01/10/21 showed a right adnexal cyst measuring 6.9x5.0x4.9cm). The patient was notified by phone. The cyst has gotten smaller in all dimensions. We have discussed options including referral for laparoscopic evaluation and possible removal or conservative management with repeat ultrasound in 4-6 months. She would like to follow this conservatively. She will make an annual exam appointment in 4 months. She was instructed to call if worsening symptoms or problems.
== END | disposition home or self-care (01) ==
LOC: RADUSWWP 12:53
PROVIDERS: ATTEND Obstetrics & Gynecology
DX: N83.291 Other ovarian cyst, right side (principal); Z90.710 Acquired absence of both cervix and uterus
CPT/HCPCS: 76856

== ENCOUNTER → 2021-08-07 | Outpatient (CLI) | payer OTHER ==
--- NOTE | 2021-08-08 07:20 | US ---
EXAMINATION TYPE: US pelvis complete transvag DATE OF EXAM: 08/07/2021 COMPARISON: US, CT CLINICAL HISTORY: R10.2Pelvic pain; N83.0 ovarian cyst. Hx right ovarian cyst. Hx hysterectomy 2020. G0. TECHNIQUE: Transvaginal (TV) and Transabdominal (TA) . Transabdominal sonographic images of the pel vis were acquired. Transvaginal sonographic images were medically necessary to better assess the fol lowing anatomy: right adnexa. Date of LMP: Hysterectomy 2020 EXAM MEASUREMENTS: Right Ovary: 5.1 x 4.4 x 2.2 cm. Limited, area in right adnexa seen and measured appears to be the r ight ovary. Left Ovary: 5.0 x 2.7 x 2.0 cm 1. Uterus: Surgically absent. 2. Endometrium: - 3. Right Ovary: Appears slightly enlarged. Limited, area in right adnexa seen appears to be the right ovary. Hypoechoic-anechoic area seen within: 3.2 x 3.1 x 1.5 cm. 4. Left Ovary: Area of mixed echogenicity and peripheral vascularity seen measuring 2.2 x 1.8 x 2.1 cm. Spectral, color and waveform doppler imaging shows arterial and venous flow within the ovaries. 5. Bilateral Adnexa: Free fluid seen within the right adnexa. 6. Posterior cul-de-sac: Appears wnl. IMPRESSION: 1. Complex ovarian lesions could reflect hemorrhagic cysts. Lesions of other etiology not excluded. C onsider follow-up study in 6 weeks.
== END | disposition home or self-care (01) ==
LOC: RADUSWWP 16:10
PROVIDERS: ATTEND Obstetrics & Gynecology
DX: N83.9 Noninflammatory disorder of ovary, fallopian tube and broad ligament, unspecified (principal); Z90.710 Acquired absence of both cervix and uterus
CPT/HCPCS: 76830; 76856; 93975

== ENCOUNTER → 2022-01-15 | Outpatient (CLI) | payer BC ==
[2022-01-15 13:16] VITALS: BP 144/89; PULSE 95; RESP 18; TEMP 97.9
--- NOTE | 2022-01-15 13:52 | P.HPOB ---
History of Present Illness H&P Date: 01/15/22 Chief Complaint: The patient is here for her routine gynecologic exam and ma mmogram. This is a 46-year-old G0 with an LMP of July 2020. The patient is status post laparoscopically assisted vaginal hysterectomy for benign reasons in July 2020. After the hysterectomy, she was found to have a fairly large right ovarian cyst measuring 6.9 cm in December 2020. This has been followed conservatively and has gradually decreased in size with serial ultrasounds. Her most recent ultrasound was done on 08/07/2021 showing a right ovarian cyst measuring 3.2 cm and a left ovarian cyst measuring 2.2 cm. She states she continues to have occasional pelvic discomfort greater on the right side. The pain can be up to 2 out of 10, but is at 0 out of 10 at this time. Review of Systems Weight has been stable. She denies respiratory or cardiac problems. GI: Occasional constipation and this can alternate with some loose stools as well. 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 Hypermenorrhea. History of Any Multi-Drug Resistant Organisms: None Reported Past Surgical History: Breast Surgery, Hysterectomy, Orthopedic Surgery, Uterine Ablation Additional Past Surgical History / Comment(s): Breast reduction surgery. RT Ankle surgery. Endometrial ablation 11/05/2019. Laparoscopically assisted vaginal hysterectomy with bilateral salpingectomy 2020. Additional Past Anesthesia/Blood Transfusion Reaction / Comment(s): over medicated during her breast reduction, pt was 13 yrs old Past Psychological History: No Psychological Hx Reported Smoking Status: Never smoker Past Alcohol Use History: Occasional (3 or 4 per month) Past Drug Use History: None Reported Additional History: She has been with her boyfriend since 2001 and lives with him. 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 - Past Family History Father Family Medical History: Congestive Heart Failure (CHF), Myocardial Infarction ([place]) Mother Family Medical History: No Reported History Additional Family Medical History / Comment(s): . Medications and Allergies Home Medications Medication Instructions Recorded Confirmed Type Levothyroxine Sodium [Synthroid] 50 mcg PO DAILY 10/27/16 01/15/22 History Allergies Allergy/AdvReac Type Severity Reaction Status Date / Time hydroxyzine [From Vistaril] Allergy Vomiting Verified 01/15/22 13:13 Exam Vital Signs Temp Pulse Resp BP Pulse Ox 01/15/22 13:14 97.9 F 95 18 144/89 97 Intake and Output 01/14/22 01/15/22 01/15/22 22:59 06:59 14:59 Other: Weight 99.79 kg Height 5 feet 5 inches, weight 220 pounds, BMI 36.6. This is a well-developed well-nourished white female who is alert and oriented times 3 in no acute distress. HEENT: Within normal limits. NECK: Supple without mass or thyromegaly. CHEST AND LUNGS: Clear to auscultation. HEART: Regular rate and rhythm. BREASTS: Are without mass or discharge. AXILLARY EXAM: Negative for adenopathy. BACK: Negative for CVA tenderness. ABDOMEN: Soft, nontender, without palpable masses. PELVIC EXAM: External genitalia appears normal. Vagina appears normal. There is no evidence of prolapse. Bimanual examination is negative for mass or tenderness. RECTAL EXAM: Rectal exam is negative for mass or tenderness and is negative for occult blood. EXTREMITIES: Nontender. IMPRESSION: 1. 46-year-old female status post vaginal hysterectomy for benign reasons, with normal gynecologic exam. 2. History of bilateral ovarian cysts after her hysterectomy in 2020. These have been followed conservatively. The most recent ultrasound on 08/07/2021 showed a right ovarian cyst measuring 3.2 cm and a left ovarian cyst measuring 2.2 cm. These are not palpable on exam today. 3. Occasional mild pelvic pains, possibly related to the ovarian cysts mentioned above. PLAN: 1. Pap smears have been discontinued. 2. Self breast awareness was discussed with the patient. We have also discussed symptoms associated with inflammatory breast cancer. 3. Screening mammogram will be done today. 4. Pelvic ultrasound will be done next month. This will be 6 months after her last pelvic ultrasound. This will be done to see if the ovarian cysts persist. The order slip was given to the patient for this. 5. Osteoporosis prevention was discussed. I have stressed the importance of adequate calcium, vitamin D and regular exercise. Recommended amounts of calcium and vitamin D were also discussed. 6. She was advised to return in one year for her annual well woman exam and as needed.
== END ==
LOC: WWCWWP 13:08
PROVIDERS: ATTEND Obstetrics & Gynecology
DX: Z12.31 Encounter for screening mammogram for malignant neoplasm of breast (principal); Z01.419 Encounter for gynecological examination (general) (routine) without abnormal findings; N83.202 Unspecified ovarian cyst, left side; N83.201 Unspecified ovarian cyst, right side; E03.9 Hypothyroidism, unspecified; Z79.890 Hormone replacement therapy; Z90.710 Acquired absence of both cervix and uterus; Z88.8 Allergy status to other drugs, medicaments and biological substances
CPT/HCPCS: 77063; 77067

== ENCOUNTER → 2023-02-18 | Outpatient (CLI) | payer BC ==
[2023-02-18 11:29] VITALS: BP 128/88; PULSE 94; RESP 16; TEMP 98.7
--- NOTE | 2023-02-18 12:04 | P.HPOB ---
History of Present Illness H&P Date: 02/18/23 Chief Complaint: The patient is here for her routine gynecologic exam and ma mmogram. This is a 47-year-old G0 with an LMP of 2020. The patient is status post laparoscopically assisted vaginal hysterectomy done for benign reasons in July 2020. The patient has had ovarian cysts following the hysterectomy and her most recent one on 08/07/2021 showed a right ovarian cyst measuring 3.2 cm and a left ovarian cyst measuring 2.2 cm. The patient was instructed to have a follow-up ultrasound about 2 months after that, but this was not done. She states she has not been experiencing any pain. However, she has noticed some abdominal bloating intermittently for several months. She has also noticed some blood in the stool the last 2 weeks. This has been painless. Review of Systems The patient has gained 24 pounds over the last year. She denies respiratory or cardiac problems. GI: She has had some bloating and some blood per rectum as in the HPI. 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 Hypermenorrhea. History of Any Multi-Drug Resistant Organisms: None Reported Past Surgical History: Breast Surgery, Hysterectomy, Orthopedic Surgery, Uterine Ablation Additional Past Surgical History / Comment(s): Breast reduction surgery. RT Ankle surgery. Endometrial ablation 11/05/2019. Laparoscopically assisted vaginal hysterectomy with bilateral salpingectomy 2020. Additional Past Anesthesia/Blood Transfusion Reaction / Comment(s): over medicated during her breast reduction, pt was 13 yrs old Past Psychological History: No Psychological Hx Reported Smoking Status: Never smoker Past Alcohol Use History: Occasional (4 per month.) Past Drug Use History: None Reported Additional History: She has been with her boyfriend since 2001 and lives with him. 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 - Past Family History Father Family Medical History: Congestive Heart Failure (CHF), Myocardial Infarction ([place]) Mother Family Medical History: No Reported History Additional Family Medical History / Comment(s): . Medications and Allergies Home Medications Medication Instructions Recorded Confirmed Type Levothyroxine Sodium [Synthroid] 50 mcg PO DAILY 10/27/16 02/18/23 History Allergies Allergy/AdvReac Type Severity Reaction Status Date / Time hydroxyzine [From Vistaril] Allergy Vomiting Verified 02/18/23 11:16 Exam Vital Signs Temp Pulse Resp BP Pulse Ox 02/18/23 11:26 98.7 F 94 16 128/88 97 Intake and Output 02/17/23 02/18/23 02/18/23 22:59 06:59 14:59 Other: Weight 110.677 kg Height 5 feet 4 inches, weight 224 pounds, BMI 41.9. This is a well-developed well-nourished heavyset white female who is alert and oriented times 3 in no acute distress. HEENT: Within normal limits. NECK: Supple without mass or thyromegaly. CHEST AND LUNGS: Clear to auscultation. HEART: Regular rate and rhythm. BREASTS: Are without mass or discharge. AXILLARY EXAM: Negative for adenopathy. BACK: Negative for CVA tenderness. ABDOMEN: Soft, obese, nontender, without palpable masses. PELVIC EXAM: External genitalia appears normal. Vagina appears normal. There is no evidence of prolapse. Bimanual examination is negative for mass or tenderness. RECTAL EXAM: Rectovaginal exam is negative for mass or tenderness and is negative for occult blood. EXTREMITIES: Nontender. IMPRESSION: 1. 47-year-old perimenopausal female status post vaginal hysterectomy with bilateral salpingectomy in 2000 for benign reasons. 2. History of ovarian cysts after her hysterectomy with the most recent ultrasound on 08/07/2021 showing a 3.2 cm right ovarian cyst and a 2.2 cm left ovarian cyst. Follow-up ultrasound was not completed by the patient. 3. Abdominal bloating. 4. Painless blood per rectum 2 weeks with no significant physical findings on exam today.. PLAN: 1. Pap smears have been discontinued. 2. Self breast awareness was discussed with the patient. We have also discussed symptoms associated with inflammatory breast cancer. 3. Screening mammogram will be done today. 4. Pelvic ultrasound was recommended because of her history of ovarian cysts and because of the abdominal bloating the patient has been experiencing. She understands that the bloating may be from other causes such as GI causes. 5. I have recommended that she have a colonoscopy and she will try to arrange this through her PCP. We have discussed how hemorrhoids or rectal fissures can lead to blood in the stool, however, she understands that it is very important to rule out other causes that may be coming from above the anus. 6.Osteoporosis prevention was discussed. I have stressed the importance of adequate calcium, vitamin D and regular exercise. Recommended amounts of calcium and vitamin D were also discussed. 7. She was advised to return in one year for her annual well woman exam and as needed.
--- NOTE | 2023-02-18 13:11 | MM ---
Reason for Exam: Clinical finding. Last mammogram was performed 1 year(s) and 1 month(s) ago. Indicated Problems: Lump or thickening of the left side for 6 Month(s). Patient History: Menarche at age 11. Patient has no children. Hysterectomy at age 45. Perimenopausal. 1986, Bilateral Reduction. Maternal aunt had breast cancer, age 55. Risk Values: Tess 5 year model risk: 1.0%. NCI Lifetime model risk: 10.0%. Prior Study Comparison: 04/17/2016 Bilateral Diagnostic Mammogram, [facility]. 07/30/2017 Bilateral Screening Mammogram, [facility]. 07/31/2018 Bilateral Diagnostic Mammogram, [facility]. 12/21/2019 Bilateral Screening Mammogram, [facility]. 12/22/2020 Bilateral Screening Mammogram, [facility]. 01/15/2022 Bilateral MG 3D screening mammo w/cad, [facility]. Tissue Density: There are scattered fibroglandular densities. Findings: Analyzed By CAD. Stable. There are a few scattered benign punctate calcifications greater on the right. No suspicious groups of microcalcifications, spiculated or lobular masses, architectural distortion or other secondary signs of malignancy are mammographically apparent. Overall Assessment: Benign, BI-RAD 2 Management: Screening Mammogram of both breasts in 1 year. A negative mammogram report should not preclude additional follow up of suspicious palpable abnormalities. Patient should continue monthly self breast exam. A clinical breast exam by your physician is recommended on an annual basis and results should be correlated with mammographic findings. Electronically signed and approved by: Bruce Villa D.O. Radiologis
== END ==
LOC: WWCWWP 11:04
PROVIDERS: ATTEND Obstetrics & Gynecology
DX: Z01.419 Encounter for gynecological examination (general) (routine) without abnormal findings (principal); N64.4 Mastodynia; R14.0 Abdominal distension (gaseous); N83.201 Unspecified ovarian cyst, right side; E03.9 Hypothyroidism, unspecified; Z79.890 Hormone replacement therapy; Z90.710 Acquired absence of both cervix and uterus; Z90.79 Acquired absence of other genital organ(s); Z80.3 Family history of malignant neoplasm of breast; Z88.5 Allergy status to narcotic agent
CPT/HCPCS: 77062; 77066

== ENCOUNTER → 2023-03-13 | Outpatient (CLI) | payer BC ==
--- NOTE | 2023-03-14 07:50 | US ---
EXAMINATION TYPE: US pelvic complete DATE OF EXAM: 03/13/2023 COMPARISON: NONE CLINICAL INDICATION: Female, 47 years old with history of N83 OVARIAN CYST; h/o ovarian cyst on the r ight that has been increasingly getting smaller over the years, no pain today, hysterectomy TECHNIQUE: TA. Transabdominal sonographic images of the pelvis were acquired. Date of LMP: hysterectomy EXAM MEASUREMENTS: Uterus: Surgically absent Endometrial Stripe: Surgically absent Right Ovary: 2.5 x 2.2 x 1.3 cm Left Ovary: 2.1 x 1.7 x 2.0 cm 1. Uterus: Surgically absent 2. Endometrium: Surgically absent 3. Right Ovary: wnl 4. Left Ovary: wnl 5. Bilateral Adnexa: wnl 6. Posterior cul-de-sac: wnl IMPRESSION: Postoperative changes without evidence for mass
== END | disposition home or self-care (01) ==
LOC: RADUSWWP 15:36
PROVIDERS: ATTEND Obstetrics & Gynecology
DX: N83.291 Other ovarian cyst, right side (principal); Z98.890 Other specified postprocedural states
CPT/HCPCS: 76856

== ENCOUNTER → 2023-08-14 | Outpatient (CLI) | payer BC ==
--- NOTE | 2023-08-14 10:57 | FL ---
EXAMINATION TYPE: FL barium swallow DATE OF EXAM: 08/14/2023 CLINICAL INDICATION: 48-year-old female R13.19, dysphagia, spasm and throat closing episode. COMPARISON: Total Fluoroscopy Time: 1 minute 53 seconds Total DAP: 456.9 mGycm2 42 images obtained. FINDINGS: There is one episode of inadvertent deep penetration of the thick barium with light coating of the vo suzan folds. There was no cough reflex. Otherwise, the swallowing mechanism is normal and hypopharyngea l anatomy is preserved. The cervical and thoracic portions have a normal course and caliber. Mild tertiary peristaltic waves are encountered when the patient is supine along with minimal residual contrast remaining scattered t hroughout the esophagus. The mucosa is normal and no persistent filling defect is encountered. There is a tiny sliding hiatal hernia. No gastroesophageal reflux seen during the course of the exam. No reflux could be elicited with Valsalva or positional maneuvers. IMPRESSION: 1. One episode of deep penetration with coating of the vocal folds at the beginning of the study. Pro bably inadvertent, due to the unfamiliar consistency of the thick barium. However, there was no cough reflex which is unusual. Clinically correlate. 2. Otherwise, the hypopharyngeal anatomy is maintained. 3. Mild early esophageal dysmotility and a tiny sliding hiatal hernia.
== END | disposition home or self-care (01) ==
LOC: RADUSWWP 09:33
PROVIDERS: ATTEND Otolaryngology
DX: K44.9 Diaphragmatic hernia without obstruction or gangrene (principal); K22.4 Dyskinesia of esophagus; R13.19 Other dysphagia
CPT/HCPCS: 74220

== ENCOUNTER → 2023-12-02 | Outpatient (CLI) | payer BC ==
[2023-12-02 13:40] VITALS: BP 128/81; PULSE 78; RESP 17; TEMP 97.9
--- NOTE | 2023-12-02 14:27 | P.HPOB ---
History of Present Illness H&P Date: 12/02/23 Chief Complaint: The patient is here for her routine gynecologic exam. This is a 56-year-old G0 with an LMP of 2020. She is status post vaginal hysterectomy with bilateral salpingectomy for benign reasons. She is requesting STD testing because she found out her partner was not faithful and this may have been going on for up to 10 years. She is no longer with him. She has noticed a small painful lump on the right inner labia. This lump has been painful and does burn. She has had genital herpes in the past and she states this does not exactly feel like that, but it could be. She denies unusual vaginal discharge. Review of Systems She has gained about 21 pounds over the past year. She denies respiratory or cardiac problems. GI: Occasional blood per rectum after a bowel movement. She did not have a colonoscopy done as previously recommended, but she states she is planning to schedule it in the near future. 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 Hypermenorrhea. History of Any Multi-Drug Resistant Organisms: None Reported Past Surgical History: Breast Surgery, Hysterectomy, Orthopedic Surgery, Uterine Ablation Additional Past Surgical History / Comment(s): Breast reduction surgery. RT Ankle surgery. Endometrial ablation 11/05/2019. Laparoscopically assisted vaginal hysterectomy with bilateral salpingectomy 2020. Additional Past Anesthesia/Blood Transfusion Reaction / Comment(s): over medicated during her breast reduction, pt was 13 yrs old Past Psychological History: No Psychological Hx Reported Smoking Status: Never smoker Past Alcohol Use History: Occasional (About 2 drinks per month.) Past Drug Use History: None Reported Additional History: She is single and has not seen anybody at this time. 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 - Past Family History Father Family Medical History: Congestive Heart Failure (CHF), Myocardial Infarction ([place]) Mother Family Medical History: No Reported History Additional Family Medical History / Comment(s): . Medications and Allergies Home Medications Medication Instructions Recorded Confirmed Type Levothyroxine Sodium [Synthroid] 50 mcg PO DAILY 10/27/16 12/02/23 History Allergies Allergy/AdvReac Type Severity Reaction Status Date / Time hydroxyzine [From Vistaril] Allergy Vomiting Verified 12/02/23 13:37 Exam Vital Signs Temp Pulse Resp BP Pulse Ox 12/02/23 13:37 97.9 F 78 17 128/81 97 Intake and Output 12/01/23 12/02/23 12/02/23 22:59 06:59 14:59 Other: Weight 110.223 kg Height 5 feet 5 inches, weight 243 pounds, BMI 40.4. This is a well-developed well-nourished heavyset white female who is alert and oriented times 3 in no acute distress. HEENT: Within normal limits. NECK: Supple without mass or thyromegaly. CHEST AND LUNGS: Clear to auscultation. HEART: Regular rate and rhythm. BREASTS: Are without mass or discharge. AXILLARY EXAM: Negative for adenopathy. BACK: Negative for CVA tenderness. ABDOMEN: Soft, without palpable masses. There is minimal infraumbilical tenderness without rebound tenderness. PELVIC EXAM: External genitalia reveals a small right labia minora cyst measuring approximately 3 mm. It has the appearance of a camarena and with gentle pressure and a small amount of whitish material is expressed. This is mildly tender. Vagina appears normal with no unusual discharge. There is no evidence of prolapse. Bimanual examination is negative for mass or tenderness. RECTAL EXAM: Rectovaginal exam is negative for mass or tenderness and is negative for occult blood. EXTREMITIES: Nontender. IMPRESSION: 1. 56-year-old perimenopausal female status post vaginal hysterectomy for benign reasons with recent discovery of partner infidelity. 2. Right labia minora cyst which is draining. Differential diagnosis will include an inclusion cyst and possible genital HSV lesion. PLAN: 1. Pap smears have been discontinued. 2. Self breast awareness was discussed with the patient. We have also discussed symptoms associated with inflammatory breast cancer. 3. Screening mammogram will be due in January and the order slip was given to the patient for this. 4. GC and Chlamydia testing was obtained from the vagina. Right labia minora lesion will be tested for HSV from the drainage. Trichomonas testing will be done from a urine specimen. Blood STD testing will include HIV, RPR, hepatitis B surface antigen, and hepatitis C antibody. The order slip was given to the patient for this and she states she will do it today. 5. STD prevention was discussed. I have stressed the importance of limiting se xual partners and I have recommended that she use condoms if she is sexually active. 6. She was advised to return in one year for her annual well woman exam.
[2023-12-02 19:51] LABS: Hepatitis B Surface Antigen Nonreactive (Nonreactive); Hepatitis C IgG Antibody Nonreactive (Nonreactive)
[2023-12-02 22:31] LABS: HIV 2 AB Non-Reactive (Non-Reactive); HIV AB P24 Non-Reactive (Non-Reactive); HIV P24 AG Non-Reactive (Non-Reactive)
== END ==
LOC: WWCWWP 12:58
PROVIDERS: ATTEND Obstetrics & Gynecology
DX: Z01.419 Encounter for gynecological examination (general) (routine) without abnormal findings (principal); E07.9 Disorder of thyroid, unspecified; Z78.0 Asymptomatic menopausal state; Z90.710 Acquired absence of both cervix and uterus; Z79.890 Hormone replacement therapy; Z88.6 Allergy status to analgesic agent
CPT/HCPCS: 86780; 86803; 87340; 87390

== ENCOUNTER → 2024-02-20 | Outpatient (CLI) | payer BC ==
--- NOTE | 2024-02-23 09:29 | MM ---
Reason for Exam: Screening (asymptomatic). Last screening mammogram was performed 12 month(s) ago. Patient History: Menarche at age 11. Patient has no children. Hysterectomy at age 45. Perimenopausal. 1985, Bilateral Reduction. Maternal aunt had breast cancer, age 55. Risk Values: Tess 5 year model risk: 1.1%. NCI Lifetime model risk: 9.9%. Prior Study Comparison: 12/22/2020 Bilateral Screening Mammogram, [facility]. 01/15/2022 Bilateral MG 3D screening mammo w/cad, [facility]. 02/18/2023 Bilateral MG 3D diag mammo w/cad KAREN, [facility]. Tissue Density: There are scattered areas of fibroglandular density. Findings: Analyzed By CAD. A vague nodular asymmetric density upper outer margin right breast. Spot compression view recommended. Benign-appearing calcifications. Overall Assessment: Incomplete: need additional imaging evaluation, BI-RAD 0 Management: Diagnostic Mammogram of the right breast. . Patient should continue monthly self-breast exams. A clinical breast exam by your physician is recommended on an annual basis. This exam should not preclude additional follow-up of suspicious palpable abnormalities. Note on Tess scores and lifetime risk: 1. A Tess score greater than 3% is considered moderate risk. If this is the case, consider specialist referral to assess eligibility for a risk reducing agent. 2. If overall lifetime risk for the development of breast cancer is 20% or higher, the patient may qualify for future screening with alternating mammogram and breast MRI. [facility], , 02/23/2024 9:26 AM. Electronically signed and approved by: Remberto Ramos M.D. Radiologis
== END | disposition home or self-care (01) ==
LOC: RADMAMWWP 07:16
PROVIDERS: ATTEND Obstetrics & Gynecology
DX: Z12.31 Encounter for screening mammogram for malignant neoplasm of breast
CPT/HCPCS: 77063; 77067

== ENCOUNTER → 2024-03-01 | Outpatient (CLI) | payer BC ==
--- NOTE | 2024-03-01 10:07 | MM ---
Reason for Exam: Additional evaluation requested from abnormal screening. Last screening mammogram was performed less than 1 month ago. Patient History: Menarche at age 11. Patient has no children. Hysterectomy at age 45. Perimenopausal. 1985, Bilateral Reduction. Maternal aunt had breast cancer, age 55. Risk Values: Tess 5 year model risk: 1.1%. NCI Lifetime model risk: 9.9%. Prior Study Comparison: 12/21/2019 Bilateral Screening Mammogram, [facility]. 12/22/2020 Bilateral Screening Mammogram, [facility]. 01/15/2022 Bilateral MG 3D screening mammo w/cad, [facility]. 02/18/2023 Bilateral MG 3D diag mammo w/cad KAREN, [facility]. 02/20/2024 Bilateral MG 3D screening mammo w/cad, [facility]. Tissue Density: Right: The breasts are heterogeneously dense, which may obscure small masses. Findings: Analyzed By CAD. No persistent asymmetric density or mass. Overall Assessment: Negative, BI-RAD 1 Management: Screening Mammogram of both breasts in 1 year. . Results were given to the patient verbally at the time of exam. Patient should continue monthly self-breast exams. A clinical breast exam by your physician is recommended on an annual basis. This exam should not preclude additional follow-up of suspicious palpable abnormalities. Note on Tess scores and lifetime risk: 1. A Tess score greater than 3% is considered moderate risk. If this is the case, consider specialist referral to assess eligibility for a risk reducing agent. 2. If overall lifetime risk for the development of breast cancer is 20% or higher, the patient may qualify for future screening with alternating mammogram and breast MRI. [facility], , 03/01/2024 10:05 AM. Electronically signed and approved by: Eric Benavidez M.D. Radiologis
== END | disposition home or self-care (01) ==
LOC: RADMAMWWP 09:46
PROVIDERS: ATTEND Obstetrics & Gynecology
DX: R92.8 Other abnormal and inconclusive findings on diagnostic imaging of breast
CPT/HCPCS: 77061; 77065

== ENCOUNTER 2024-03-24 08:01 | Day surgery (SDC) | payer BC ==
[2024-03-24 08:25] VITALS: RESP 16; TEMP 97.1
[2024-03-24] MEDS: IV FLUID CONTINUATION 1,000 ML IV ONE (08:25)
[2024-03-24] MEDS: LACTATED RINGERS 1,000 ML IV SCH (08:32)
[2024-03-24] MEDS ORDERED: PROPOFOL 10 MG/ML 20 ML VIAL IV ONE (09:11)
--- NOTE | 2024-03-24 09:30 | P.PCN ---
Date of Procedure: 03/24/24 Procedure(s) Performed: BRIEF HISTORY: Patient is a 48-year-old pleasant white female scheduled for an elective colonoscopy as a part of screening for colon cancer. PROCEDURE PERFORMED: Colonoscopy. PREOPERATIVE DIAGNOSIS: Screening for colon cancer. IV sedation per Anesthesia. PROCEDURE: After informed consent was obtained, the patient, was brought into the endoscopy unit. IV sedation was administered by Anesthesia under continuous monitoring. Digital rectal examination was normal. Initially the Olympus CF-160 flexible video colonoscope was then inserted in the rectum, gradually advanced into the cecum without any difficulty. Careful examination was performed as the scope was gradually being withdrawn. Ileocecal valve and the appendiceal orifice were visualized and appeared normal. Prep was excellent. Mucosa of the cecum, ascending colon, transverse colon, descending colon, sigmoid colon, and rectum appeared normal. Retroflexion was performed in the rectum and no lesions were seen. The patient tolerated the procedure well. IMPRESSION: Normal-appearing colon from rectum to cecum with no evidence of colorectal neoplasia. RECOMMENDATIONS: Findings of this examination were discussed with the patient as well as her family. She was advised to have repeat screening colonoscopy in 10 years.
[2024-03-24 09:53] VITALS: BP 107/67; PULSE 96
== END 2024-03-24 10:10 | disposition home or self-care (01) ==
LOC: ORWHC2ENDO 08:01
PROVIDERS: ATTEND Internal Medicine Gastroenterology